=== PATIENT | male | born 1940 | race Caucasian/White ===

== ENCOUNTER 2016-09-08 23:15 | Inpatient (IN) ==
[2016-09-09] MEDS ORDERED: SODIUM CHLORIDE 0.9% 500 ML IV STA (00:18)
[2016-09-09] MEDS ORDERED: DIPHENOXYLATE/ATROPINE 2.5-0.025 MG TABLET PO STA (00:18)
[2016-09-09] MEDS ORDERED: ONDANSETRON 4 MG/2 ML VIAL IV STA (00:18)
[2016-09-09] MEDS ORDERED: LORazepam 2 MG/1 ML VIAL IV STA (00:18)
--- NOTE | 2016-09-09 00:36 | Emergency Department Note ---
Rayna Alvarado Emily, am scribing for, and in the presence of, Gary Burdick MD 00: 21. Gennaro Alvarado Robert M, MD, personally performed the services described in this documentation, ascribed by Nicki Way in my presence, and it is both accurate and complete . Arrival - Arrival Chief Complaint: Nausea/Vomiting/Diarrhea Stated Complaint: diarrhea ED Nursing Triage Note: Patient to room via ems. Patient states that he started having diarrhea on Sunday. He states that he seen on Sunday and Sunday he got sick. He saids that he has taken medication to try to help with the diarrhea but it has not stopped. Mode of Arrival: Stretcher Limitations: No Limitations Source: Patient Time Seen by Provider: 09/09/16 00:12 - History of Present Illness HPI Narrative: Pt is a 76 y/o male who came to ED with c/o diarrhea that started Sunday, September 04, 2016. Pt was seen in Dr. Avila Abernathy' office for same sxs on Sunday and worsened on Sunday and continued. Pt notes taking Pepsid but no relief. Pt states he has abdomen discomfort but denies cramping. Onset (ago): day(s) Consistency: constant Severity: mild, moderate Severity scale (1-10): 4 Quality: aching Allergies/Adverse Reactions: Allergies Allergy/AdvReac Type Severity Reaction Status Date / Time codeine Allergy ITCHING Verified 09/08/16 23:22 morphine Allergy ITCHING Verified 09/08/16 23:22 Review of System - Review of System 12 point system: reviewed and no additional remarkable complaints except as stated - Review of System Constitutional: Absent: chills, fever Respiratory: Absent: respiratory distress Cardiovascular: Absent: chest pain Gastrointestinal: Present: abdominal pain (discomfort), diarrhea. Absent: vomiting Skin: Absent: rash Medical,Surgical,& Family Hx - Medical History Cardio: History of: Hypertension Genitourinary: History of: Prostate Problems (prostate ca) - Social History Smoking Status: Never smoker Frequency of Alcohol Use: None Type of Drug Use: None Exam Vital Signs: Vital Signs Temperature 99.6 F 09/08/16 23:16 Pulse Rate 70 09/08/16 23:16 Respiratory Rate 20 09/08/16 23:16 Blood Pressure 125/58 09/08/16 23:16 O2 Sat by Pulse Oximetry 90 L 09/08/16 23:16 - General General appearance: alert, in no apparent distress - Head Head exam: Present: atraumatic, normocephalic - Eye Eye exam: Present: PERRL, EOMI - ENT ENT exam: Present: mucous membranes dry, other (pepsid in mouth). Absent: mucous membranes moist - Neck Neck exam: Present: full ROM. Absent: tenderness - Chest Chest inspection: Present: symmetric chest wall rise. Absent: tenderness - Respiratory Respiratory exam: Present: normal lung sounds bilaterally. Absent: respiratory distress - Cardiovascular Cardiovascular exam: Present: tachycardia (mild), normal heart sounds - Abdominal Exam Abdominal exam: Present: soft, tenderness (minimal tenderness), hyperactive bowel sounds. Absent: distention, guarding, rebound, normal bowel sounds, mass - Extremities Exam Extremities exam: Present: full ROM. Absent: tenderness, pedal edema - Neurological Exam Neurological exam: Present: alert, oriented X3, CN II-XII intact. Absent: motor sensory deficit - Psychiatric Psychiatric exam: Present: normal affect, normal mood - Skin Skin exam: Present: warm, dry Course - Consultations Consultation #1: Dr. Mari will admit to Dr. William Abernathy. Time: 02:03 Results - Labs CBC & BMP: 09/09/16 00:34 09/09/16 00:34 Lab Results: I have reviewed the patients labs Labs: Lab Results WBC 7.7 T/CUMM (4-12) 09/09/16 00:34 RBC 4.79 MC/CUMM (3.8-5.5) 09/09/16 00:34 Hgb 11.3 GM/DL (14.0-18.0) L 09/09/16 00:34 Hct 36.4 VOL% (42.0-52.0) L 09/09/16 00:34 MCV 76.0 FL (87-102) L 09/09/16 00:34 MCH 24 PG (27-34) L 09/09/16 00:34 MCHC 31.0 GM/DL (32-36) L 09/09/16 00:34 RDW 18.6 % (9.3-17.3) H 09/09/16 00:34 Plt Count 197 T/CUMM (130-400) 09/09/16 00:34 MPV 9.6 FL (9.6-12.0) 09/09/16 00:34 Neut % (Auto) 82.7 % (38.7-73.9) H 09/09/16 00:34 Lymph % (Auto) 6.9 % (21.2-54.2) L 09/09/16 00:34 [place] % (Auto) 9.2 % (1.7-12.7) 09/09/16 00:34 Eos % (Auto) 0.0 % (0.00-10.9) 09/09/16 00:34 Baso % (Auto) 0.4 % (0.0-0.8) 09/09/16 00:34 Neut # (Auto) 6.4 10*3/uL (1.4-7.4) 09/09/16 00:34 Lymph # (Auto) 0.5 10*3/uL (1.4-4.0) L 09/09/16 00:34 [place] # (Auto) 0.7 10*3/uL (0.11-0.8) 09/09/16 00:34 Eos # (Auto) 0.0 10*3/uL (0.0-0.87) 09/09/16 00:34 Baso # (Auto) 0.0 10*3/uL (0.0-0.2) 09/09/16 00:34 Immature Gran % 0.8 % 09/09/16 00:34 Nucleated RBC % 0.0 /100WBC 09/09/16 00:34 Immature Gran # 0.06 # 09/09/16 00:34 Nucleated RBCs # 0.00 10*3/uL 09/09/16 00:34 Sodium 144 MMOL/L (136-145) 09/09/16 00:34 Potassium 3.9 MMOL/L (3.5-5.1) 09/09/16 00:34 Chloride 110 MMOL/L (98-107) H 09/09/16 00:34 Carbon Dioxide 21 MMOL/L (21-32) 09/09/16 00:34 Anion Gap 16.9 MMOL/L (5.0-15.0) H 09/09/16 00:34 BUN 38 MG/DL (7-18) H 09/09/16 00:34 Creatinine 1.40 MG/DL (0.70-1.30) H 09/09/16 00:34 GFR Calculation 55 ML/MIN 09/09/16 00:34 BUN/Creatinine Ratio 27.00 RATIO (6.00-20.00) H 09/09/16 00:34 Glucose 126 MG/DL (74-106) H 09/09/16 00:34 Calculated Osmolality 296.8 MOS/KG (273-304) 09/09/16 00:34 Calcium 8.3 MG/DL (8.5-10.1) L 09/09/16 00:34 Magnesium 2.0 MG/DL (1.8-2.4) 09/09/16 00:34 Disposition Clinical Impression: Gastroenteritis Case discussed with: patient, patient's family Disposition: Still a Patient Condition: Stable Time of Disposition: 02:01
[2016-09-09] MEDS ORDERED: ONDANSETRON 4 MG/2 ML VIAL ONE (00:46)
[2016-09-09] MEDS ORDERED: LORazepam 2 MG/1 ML VIAL ONE (00:47)
[2016-09-09] MEDS ORDERED: DIPHENOXYLATE/ATROPINE 2.5-0.025 MG TABLET ONE (00:47)
[2016-09-09 01:05] LABS: Calcium 8.3 MG/DL (8.5-10.1); Osmolality,Calculated 296.8 MOS/KG (273-304); Potassium 3.9 MMOL/L (3.5-5.1)
[2016-09-09 01:22] LABS: Basophils % 0.4 % (0.0-0.8); Hematocrit 36.4 VOL% (42.0-52.0); Hemoglobin 11.3 GM/DL (14.0-18.0); Immature Granulocytes % 0.8 %; Immature Granulocytes Absolute 0.06 #; Lymphocytes # 0.5 10*3/uL (1.4-4.0); Lymphocytes % 6.9 % (21.2-54.2); Mean Corpuscular Hemoglobin 24 PG (27-34); Mean Platelet Volume 9.6 FL (9.6-12.0); Monocytes # 0.7 10*3/uL (0.11-0.8); Monocytes % 9.2 % (1.7-12.7); Neutrophils # 6.4 10*3/uL (1.4-7.4); Neutrophils % 82.7 % (38.7-73.9); Platelet Count 197 T/CUMM (130-400); Red Blood Count 4.79 MC/CUMM (3.8-5.5); Red Cell Distribution Width 18.6 % (9.3-17.3); White Blood Count 7.7 T/CUMM (4-12)
[2016-09-09] MEDS ORDERED: PROMETHAZINE 25 MG/1 ML VIAL IM PRN (01:58)
[2016-09-09] MEDS ORDERED: ACETAMINOPHEN 325 MG TABLET PO PRN (01:58)
[2016-09-09] MEDS ORDERED: PROMETHAZINE 25 MG TABLET PO PRN (01:58)
[2016-09-09] MEDS ORDERED: ONDANSETRON 4 MG/2 ML VIAL IV PRN (01:58)
[2016-09-09] MEDS ORDERED: SODIUM CHLORIDE 0.9% 1,000 ML IV SCH (02:00)
[2016-09-09] MEDS: DOCUSATE SODIUM 100 MG CAPSULE PO SCH ×2 (08:11→20:57)
[2016-09-09] MEDS ORDERED: traMADol 50 MG TABLET PO PRN (08:41)
[2016-09-09] MEDS ORDERED: POTASSIUM CHLORIDE INJ 10 MEQ in DEXTROSE 5% NACL 0.45% 1,000 ML IV SCH (09:00)
[2016-09-09] MEDS ORDERED: PANTOPRAZOLE 40 MG TABLET PO SCH ×2 (09:00)
--- NOTE | 2016-09-09 09:41 | Family Practice History&Phys ---
Assessment and Plan (1) N/V and diarrhea with volume depletion Status: Acute Assessment and plan: We will admit for IV hydration and further evaluation Current Visit: Yes (2) Severe weakness Status: Acute Assessment and plan: This is most likely secondary to his prolonged nausea vomiting diarrhea. Hopefully will improve with hydration and treatment. Will have patient sit up in chair and ambulate as much as possible Current Visit: Yes (3) Hypertension Status: Chronic Assessment and plan: We will resume home medications and monitor closely Current Visit: Yes (4) Status post carcinoma of the prostate Status: Chronic Assessment and plan: Stable at present Current Visit: Yes (5) History of renal calculi Status: Chronic Assessment and plan: Stable at present Current Visit: Yes (6) Seizure disorder Status: Chronic Assessment and plan: We will resume home medications and monitor closely Current Visit: Yes History of Present Illness Chief complaint: Nausea vomiting and diarrhea History of present illness: Mr. Tavarez is a 76 year old male Patient is a 76-year-old white male who was admitted to the emergency room with complaint of nausea vomiting and diarrhea since Sunday of this week. Patient states the diarrhea has improved but is still having almost continuous nausea. Unable to tolerate solids or liquids at present. Denies any significant abdominal pain or other complaints. Is having some abdominal cramping with diarrhea but this is improved. Patient states she has got extremely weak to the point that he is unable to stand without assistance. He was seen in emergency room in view of degree of symptoms admitted for further evaluation therapy Home Medications Medication Instructions Recorded Confirmed Type Atorvastatin [Lipitor] 20 mg PO DAILY 09/09/16 09/09/16 History Clopidogrel [Plavix] 75 mg PO DAILY 09/09/16 09/09/16 History Folic Acid Tab 1 mg PO DAILY 09/09/16 09/09/16 History OXcarbazepine [Trileptal] 300 mg PO BID 09/09/16 09/09/16 History Sertraline [Zoloft] 25 mg PO BID 09/09/16 09/09/16 History Tamsulosin [Flomax] 0.4 mg PO DAILY 09/09/16 09/09/16 History Allergies Allergy/AdvReac Type Severity Reaction Status Date / Time codeine Allergy ITCHING Verified 09/08/16 23:22 morphine Allergy ITCHING Verified 09/08/16 23:22 Medical,Surgical,& Family Hx - Medical History Cardio: History of: Hypertension Neurology: History of: Seizures HEENT: History of: Eye Problem (wears glasses) Genitourinary: History of: Kidney Stones, Prostate Problems (prostate ca) - Surgical History Thoracic Surgeries: Surgical HX of;: Lithotripsy Patient denies;: Organ Transplant HEENT Surgeries: Patient denies: Eye Surgery, Tonsilectomy & Adenoidectomy Abdominal Surgeries: Surgical HX of: EGD - Family History Family History: Reports;: Family Hypertension - Social History Smoking Status: Never smoker Frequency of Alcohol Use: None Type of Drug Use: None Marital Status: Lives With:: Spouse Functional capacity: independent ambulation Exam - Constitutional Vitals: Period Temp Pulse Resp BP Sys/Arellano Pulse Ox Last 24 Hr 100.9 F 69-81 16-24 150-195/76-93 92-95 General appearance: mild distress - Head Head exam: Present: normal inspection - ENT ENT exam: Present: normal exam - Neck Neck exam: Present: normal inspection - Respiratory Respiratory exam: Present: clear to auscultation bilaterally - Cardiovascular Cardiovascular exam: Present: regular rate and rhythm - GI/Abdominal GI/Abdominal exam: Present: hyperactive bowel sounds, tenderness - Extremities Exam Extremities exam: Present: normal inspection - Back Exam Back exam: Present: normal inspection - Neurological Exam Neurological exam: Present: alert, oriented X3 - Psychiatric Psychiatric exam: Present: normal affect - Skin Skin exam: Present: normal color Results - Labs CBC & BMP: 09/09/16 00:34 09/09/16 00:34 Quality Measures - Stroke Symptom Onset Unknown: No
[2016-09-09] MEDS: TAMSULOSIN 0.4 MG CAPSULE PO SCH (10:27)
[2016-09-09] MEDS: SERTRALINE 25 MG TABLET PO SCH ×2 (10:27→20:58)
[2016-09-09] MEDS: FOLIC ACID 1 MG TABLET PO SCH (10:27)
[2016-09-09] MEDS: ATORVASTATIN 20 MG TABLET PO SCH (10:27)
[2016-09-09] MEDS: OXcarbazepine 300 MG TABLET PO SCH ×2 (10:28→20:58)
[2016-09-09] MEDS: CLOPIDOGREL 75 MG TABLET PO SCH (10:28)
[2016-09-09] MEDS: PANTOPRAZOLE 40 MG VIAL IV SCH (10:28)
--- NOTE | 2016-09-09 10:34 | XRay Report ---
Portable chest. Indication: Shortness of breath. The heart is normal in size. There is calcific plaque present within the aortic knob. Calcified granulomas in the right lung base. Pulmonary vasculature is normal. The lung estrada are clear. No pneumothorax or pleural effusion. Degenerative changes of the spinal column and shoulders. Impression: No acute abnormality. PROCEDURE INTERPRETED AT [facility] DEPARTMENT OF RADIOLOGY Final Report Signed by: Dr. Brandie Borden
[2016-09-09] MEDS: DEXT 5% NACL 0.45% KCL 10 MEQ 10 MEQ/1,000 ML BAG IV SCH ×2 (10:38→17:23)
[2016-09-09 18:07] LABS: Apearance,Urine CLOUDY (Clear); Bacteria,Urine Few /HPF (Few); Bilirubin,Urine Negative (Negative); Blood, Urine Large mg/dL (Negative); Glucose,Urine (UA) Negative (Negative); Ketones,Urine Negative (Negative); Mucus,Urine Occasional /LPF (Occasional); Nitrite,Urine Negative (Negative); Protein,Urine 100 MG/DL; RBC,Urine 711 /HPF (0-4); Squamous Epithelial Cell,Urine Occasional /HPF (0-10); Urine Color Yellow (Yellow); Urine Specific Gravity 1.018 (1.001-1.035); Urine Urobilinogen < 2.0 EU/DL (0.2-1.0)
[2016-09-09] MEDS: cloNIDine 0.1 MG TABLET PO SCH (20:57)
[2016-09-09] MEDS: ACETAMINOPHEN 325 MG TABLET PO PRN (20:58)
[2016-09-10] MEDS: DEXT 5% NACL 0.45% KCL 10 MEQ 10 MEQ/1,000 ML BAG IV SCH ×4 (00:28→21:10)
[2016-09-10 04:55] LABS: Basophils % 0.5 % (0.0-0.8); Eosinophils # 0.1 10*3/uL (0.0-0.87); Eosinophils % 1.3 % (0.00-10.9); Hematocrit 31.5 VOL% (42.0-52.0); Hemoglobin 9.9 GM/DL (14.0-18.0); Immature Granulocytes % 0.5 %; Immature Granulocytes Absolute 0.03 #; Lymphocytes # 0.6 10*3/uL (1.4-4.0); Lymphocytes % 9.8 % (21.2-54.2); Mean Corpuscular HGB Conc 31.4 GM/DL (32-36); Mean Corpuscular Hemoglobin 24 PG (27-34); Mean Corpuscular Volume 75.5 FL (87-102); Mean Platelet Volume 10.1 FL (9.6-12.0); Monocytes # 0.4 10*3/uL (0.11-0.8); Neutrophils # 5.1 10*3/uL (1.4-7.4); Neutrophils % 80.9 % (38.7-73.9); Platelet Count 181 T/CUMM (130-400); Red Blood Count 4.17 MC/CUMM (3.8-5.5); Red Cell Distribution Width 18.6 % (9.3-17.3); White Blood Count 6.3 T/CUMM (4-12)
[2016-09-10 05:29] LABS: Albumin 2.6 G/DL (3.4-5.0); Bilirubin,Total 1.8 MG/DL (0.2-1.0); Calcium 7.8 MG/DL (8.5-10.1); Potassium 4.1 MMOL/L (3.5-5.1); Risk Ratio 2.36; Total Protein 5.6 G/DL (6.4-8.3); VLDL CHOLESTEROL 13.4 MG/DL
[2016-09-10 05:37] LABS: Free T4 (Free Thyroxine) 1.17 NG/DL (0.76-1.46); Thyroid Stimulating Hormone 0.163 uIU/ml (0.358-3.74)
[2016-09-10 05:42] LABS: Hypochromasia 1+; Microcytosis 1+
[2016-09-10 05:43] LABS: Elliptocytes Few; Platelet Estimate Adequate
[2016-09-10] MEDS: PANTOPRAZOLE 40 MG VIAL IV SCH (08:44)
[2016-09-10] MEDS: OXcarbazepine 300 MG TABLET PO SCH ×2 (08:44→21:11)
[2016-09-10] MEDS: CLOPIDOGREL 75 MG TABLET PO SCH (08:44)
[2016-09-10] MEDS: DOCUSATE SODIUM 100 MG CAPSULE PO SCH ×2 (08:44→21:11)
[2016-09-10] MEDS: TAMSULOSIN 0.4 MG CAPSULE PO SCH (08:44)
[2016-09-10] MEDS: SERTRALINE 25 MG TABLET PO SCH ×2 (08:44→21:11)
[2016-09-10] MEDS: ATORVASTATIN 20 MG TABLET PO SCH (08:44)
[2016-09-10] MEDS: FOLIC ACID 1 MG TABLET PO SCH (08:49)
--- NOTE | 2016-09-10 12:07 | Family Practice Progress Note ---
Family Practice - PN: Subj Interval history: Patient states that he feels better and has less nausea. He is tolerating as liquids. States she has redeveloped some diarrhea but not severe. Main complaint is significant weakness. Complaining of sore throat and his mouth is noted to be extremely dry. Will continue the IV fluids but will have patient increase his oral intake of fluids. He denies any vomiting abdominal pain or other complaints. His a.m. lab studies revealed a decrease in his hemoglobin to 9.9 and hematocrit to 31.5. His other labs are stable except for slight increase in his total bilirubin at 1.8. His chest x-ray on admission was unremarkable. Appearance-general alert and oriented HEENT-no acute changes, mouth is very dry Heart-regular rate and rhythm no murmurs Lungs-clear to auscultation Abdomen-soft and nontender, no masses or nodules noted, normal bowel sounds Extremities-slight edema Neurological exam-stable to present P L A N : Will repeat lab studies in a.m.. In view of his persistent nausea will order ultrasound of the upper abdomen. Have instructed staff to have patient sit in chair as much as possible. Have consulted physical therapy. Have ordered Hemoccult stools. If symptoms persist will need to have further abdominal studies. Exam (Progress Note) - Constitutional Vitals: Period Temp Pulse Resp BP Sys/Arellano Pulse Ox Last 24 Hr 98.4 F-101.4 F 56-86 18-28 118-156/59-74 92-100 Results - Labs CBC & BMP: 09/10/16 03:21 09/10/16 03:20 Assessment and Plan (1) N/V and diarrhea with volume depletion Status: Acute Assessment and plan: We will admit for IV hydration and further evaluation Current Visit: Yes (2) Severe weakness Status: Acute Assessment and plan: This is most likely secondary to his prolonged nausea vomiting diarrhea. Hopefully will improve with hydration and treatment. Will have patient sit up in chair and ambulate as much as possible Current Visit: Yes (3) Hypertension Status: Chronic Assessment and plan: We will resume home medications and monitor closely Current Visit: Yes (4) Status post carcinoma of the prostate Status: Chronic Assessment and plan: Stable at present Current Visit: Yes (5) History of renal calculi Status: Chronic Assessment and plan: Stable at present Current Visit: Yes (6) Seizure disorder Status: Chronic Assessment and plan: We will resume home medications and monitor closely Current Visit: Yes Quality Measures - Stroke Symptom Onset Unknown: No
[2016-09-10] MEDS: ACETAMINOPHEN 325 MG TABLET PO PRN (21:11)
[2016-09-10] MEDS: cloNIDine 0.1 MG TABLET PO SCH (21:11)
[2016-09-11] MEDS: DEXT 5% NACL 0.45% KCL 10 MEQ 10 MEQ/1,000 ML BAG IV SCH (03:23)
[2016-09-11 06:38] LABS: Basophils % 0.4 % (0.0-0.8); Eosinophils # 0.3 10*3/uL (0.0-0.87); Eosinophils % 5.9 % (0.00-10.9); Hematocrit 30.5 VOL% (42.0-52.0); Hemoglobin 9.7 GM/DL (14.0-18.0); Immature Granulocytes % 0.4 %; Immature Granulocytes Absolute 0.02 #; Lymphocytes # 0.5 10*3/uL (1.4-4.0); Lymphocytes % 9.7 % (21.2-54.2); Mean Corpuscular HGB Conc 31.8 GM/DL (32-36); Mean Corpuscular Hemoglobin 24 PG (27-34); Mean Corpuscular Volume 74.2 FL (87-102); Mean Platelet Volume 9.8 FL (9.6-12.0); Monocytes # 0.4 10*3/uL (0.11-0.8); Monocytes % 6.8 % (1.7-12.7); Neutrophils # 4.3 10*3/uL (1.4-7.4); Neutrophils % 76.8 % (38.7-73.9); Platelet Count 196 T/CUMM (130-400); Red Blood Count 4.11 MC/CUMM (3.8-5.5); Red Cell Distribution Width 18.1 % (9.3-17.3); White Blood Count 5.6 T/CUMM (4-12)
[2016-09-11 07:11] LABS: Albumin 2.4 G/DL (3.4-5.0); Bilirubin,Total 0.7 MG/DL (0.2-1.0); Calcium 7.4 MG/DL (8.5-10.1); Osmolality,Calculated 282.1 MOS/KG (273-304); Potassium 3.7 MMOL/L (3.5-5.1); Total Protein 5.5 G/DL (6.4-8.3)
--- NOTE | 2016-09-11 07:17 | Family Practice Progress Note ---
Family Practice - PN: Subj Interval history: Patient 76-year-old white male admitted with weakness and probable dehydration. He states he had quite a bit of diarrhea denied no nausea or vomiting. He denies any abdominal pain, chest pain or any other problems at present. He does have a past medical history of staghorn calculi and prostate cancer. He denies any seizure activity and has been taking his Trileptal faithfully. He does not have any headaches, cough or shortness of breath. He denies any further falls. Exam (Progress Note) - Constitutional Vitals: Period Temp Pulse Resp BP Sys/Arellano Pulse Ox Last 24 Hr 98.0 F-99.4 F 54-76 18-20 132-155/69-83 90-97 Exam: Objective the well-developed gentleman is awake alert and able give good history. He has prominent resting tremor of Parkinson's disease. He appears comfortable and denies any discomfort of any sort. Cardiovascular: Heart rates regular without murmurs or gallops Respiratory: The lungs clear to auscultation bilaterally. Abdomen: Abdomen soft and nontender to palpation. Results - Labs CBC & BMP: 09/11/16 04:49 09/11/16 04:49 Lab Results: I have reviewed the past 24 hour labs Assessment and Plan (1) Dehydration Status: Acute Assessment and plan: 09/11/2016: Patient has improved with IV fluid therapy. Will check orthostatic vital signs. Current Visit: Yes (2) Gastroenteritis Status: Acute Assessment and plan: 09/11/2016: Patient has absolutely no abdominal pain whatsoever. His CRP was quite elevated so I am going to culture was blood in his urine and begin him on IV Rocephin. Stool studies will be ordered. Current Visit: Yes Quality Measures - Stroke Symptom Onset Unknown: No
--- NOTE | 2016-09-11 08:05 | Ultrasound Report ---
Referring Physician: Naveed Mari Exam: US abdomen Date: September 11, 2016 Reason: Upper abdominal pain Comparison: Renal ultrasound March 31, 2013 Technique: Grayscale ultrasound images of the abdomen were obtained. Ultrasound images were captured and stored. Findings: The liver measures 14.7 cm in length. No suspicious hepatic lesion is identified. No gallstones are seen. No abnormal gallbladder wall thickening or pericholecystic fluid is identified. The common bile duct is normal in size, measuring 0.4 cm in diameter. The visualized pancreas is unremarkable. The right kidney measures 12.9 x 6.3 x 5.7 cm, and the left kidney measures 13.4 x 7.1 x 5.3 cm. No hydronephrosis is seen. Bilateral renal cysts are present. There is a 3.5 x 2.0 x 2.6 cm exophytic simple cyst at the upper pole of the right kidney and a 3.1 x 2.6 x 2.2 cm exophytic simple cyst at the lower pole of the right kidney. The largest cyst at the left kidney measures 5.7 x 4.9 x 4.7 cm, is exophytic and is located at the upper pole. The spleen measures 11.4 x 5.8 x 4.3 cm. Splenic volume is 264 cc. The visualized IVC is patent, and no ascites is identified. The visualized abdominal aorta is normal in size, measuring up to 2.1 cm in diameter. Impression: 1. No acute process is identified within the abdomen. 2. Bilateral renal cysts. PROCEDURE INTERPRETED AT [facility] DEPARTMENT OF RADIOLOGY Final Report Signed by: Dr. Gato Tavarez
[2016-09-11] MEDS: CLOPIDOGREL 75 MG TABLET PO SCH (09:27)
[2016-09-11] MEDS: ATORVASTATIN 20 MG TABLET PO SCH (09:28)
[2016-09-11] MEDS: DOCUSATE SODIUM 100 MG CAPSULE PO SCH ×3 (09:28→21:15)
[2016-09-11] MEDS: OXcarbazepine 300 MG TABLET PO SCH ×2 (09:28→21:13)
[2016-09-11] MEDS: TAMSULOSIN 0.4 MG CAPSULE PO SCH (09:28)
[2016-09-11] MEDS: FOLIC ACID 1 MG TABLET PO SCH (09:28)
[2016-09-11] MEDS: SERTRALINE 25 MG TABLET PO SCH ×2 (09:28→21:13)
[2016-09-11] MEDS: cefTRIAXone 1,000 MG in SODIUM CHLORIDE 0.9% 100 ML IV SCH (09:31)
[2016-09-11] MEDS: PANTOPRAZOLE 40 MG VIAL IV SCH (13:58)
[2016-09-11] MEDS: ACETAMINOPHEN 325 MG TABLET PO PRN (14:01)
[2016-09-11] MEDS ORDERED: CLORAZEPATE 3.75 MG TABLET PO ONE (20:49)
[2016-09-11] MEDS ORDERED: ALBUTEROL/IPRATROPIUM 3 ML NEB RESP TX PRN (20:50)
[2016-09-11] MEDS: cloNIDine 0.1 MG TABLET PO SCH (21:13)
[2016-09-11] MEDS ORDERED: FUROSEMIDE 20 MG/2 ML VIAL IV ONE (21:36)
--- NOTE | 2016-09-11 22:00 | XRay Report ---
Portable chest. Indication: Shortness of breath. Comparison: September 09, 2016. The heart is mildly enlarged. There is calcific plaque present within the aortic knob. The pulmonary vasculature is normal. There is increasing interstitial prominence in the medial aspect of the right lung base compared to the previous study. No pneumothorax. No pleural effusion. Impression: A mild right basilar interstitial infiltrate has developed. Follow-up is recommended. PROCEDURE INTERPRETED AT [facility] DEPARTMENT OF RADIOLOGY Final Report Signed by: Dr. Brandie Borden
[2016-09-12 06:56] LABS: Basophils % 0.3 % (0.0-0.8); Eosinophils # 0.2 10*3/uL (0.0-0.87); Eosinophils % 2.4 % (0.00-10.9); Hematocrit 34.3 VOL% (42.0-52.0); Hemoglobin 10.8 GM/DL (14.0-18.0); Immature Granulocytes % 1.1 %; Immature Granulocytes Absolute 0.08 #; Lymphocytes # 0.5 10*3/uL (1.4-4.0); Lymphocytes % 6.4 % (21.2-54.2); Mean Corpuscular HGB Conc 31.5 GM/DL (32-36); Mean Corpuscular Hemoglobin 24 PG (27-34); Mean Corpuscular Volume 74.9 FL (87-102); Mean Platelet Volume 9.6 FL (9.6-12.0); Monocytes # 0.5 10*3/uL (0.11-0.8); Monocytes % 7.3 % (1.7-12.7); Neutrophils # 6.1 10*3/uL (1.4-7.4); Neutrophils % 82.5 % (38.7-73.9); Platelet Count 262 T/CUMM (130-400); Red Blood Count 4.58 MC/CUMM (3.8-5.5); Red Cell Distribution Width 17.8 % (9.3-17.3); White Blood Count 7.4 T/CUMM (4-12)
--- NOTE | 2016-09-12 07:00 | Family Practice Progress Note ---
Family Practice - PN: Subj Interval history: Patient states he had a good night and his appetite has improved. His diarrhea lessened fair amount yesterday. He still was negative for C. difficile and his culture is pending. Repeat chest x-ray showed right midlung field pneumonia which I had suspicioned. Blood cultures are yet pending. Physical therapy has been consulted and I have asked the nurses to get him up in chair twice daily. Will advance his diet as he tolerates. I am also going to reduce his IV fluid. Exam (Progress Note) - Constitutional Vitals: Period Temp Pulse Resp BP Sys/Arellano Pulse Ox Last 24 Hr 98.4 F-100.2 F 65-86 20-24 144-168/77-88 92-97 Exam: Objective the well-developed gentleman is awake alert and able give good history. He states he certainly feeling better this morning. Laboratory studies show complete resolution of his dehydration. His chest x-ray shows right midlung field infiltrate not present on initial film due to his dehydration. Cardiovascular: Heart rates regular without murmurs or gallops Respiratory: Patient is noted to have right basilar rales. Abdomen: Abdomen soft and nontender to palpation. Results - Labs CBC & BMP: 09/12/16 04:56 09/11/16 04:49 Lab Results: I have reviewed the past 24 hour labs - Diagnostic Findings Procedure: Chest x-ray: report reviewed by me (Right mid lung field pneumonia) Assessment and Plan (1) Dehydration Status: Resolved Assessment and plan: 09/11/2016: Patient has improved with IV fluid therapy. Will check orthostatic vital signs. 09/12/2016: Patient's dehydration has resolved. Current Visit: Yes (2) Gastroenteritis Status: Acute Assessment and plan: 09/11/2016: Patient has absolutely no abdominal pain whatsoever. His CRP was quite elevated so I am going to culture was blood in his urine and begin him on IV Rocephin. Stool studies will be ordered. 09/12/2016: Patient states this is certainly improved. Will advance his diet. Stool cultures pending the C. difficile was negative. Current Visit: Yes (3) Community acquired pneumonia Status: Acute Assessment and plan: 09/12/2016: Rocephin was started yesterday. Will add Zithromax today. Current Visit: Yes Quality Measures - Stroke Symptom Onset Unknown: No
[2016-09-12] MEDS: AZITHROMYCIN INJ 500 MG in SODIUM CHLORIDE 0.9% 250 ML IV SCH (09:02)
[2016-09-12] MEDS: cefTRIAXone 1,000 MG in SODIUM CHLORIDE 0.9% 100 ML IV SCH (10:44)
[2016-09-12] MEDS: OXcarbazepine 300 MG TABLET PO SCH ×2 (10:46→20:44)
[2016-09-12] MEDS: PANTOPRAZOLE 40 MG TABLET PO SCH (10:46)
[2016-09-12] MEDS: TAMSULOSIN 0.4 MG CAPSULE PO SCH (10:46)
[2016-09-12] MEDS: DOCUSATE SODIUM 100 MG CAPSULE PO SCH ×2 (10:46→20:45)
[2016-09-12] MEDS: SERTRALINE 25 MG TABLET PO SCH ×2 (10:46→20:44)
[2016-09-12] MEDS: ATORVASTATIN 20 MG TABLET PO SCH (10:46)
[2016-09-12] MEDS: CLOPIDOGREL 75 MG TABLET PO SCH (10:46)
[2016-09-12] MEDS: FOLIC ACID 1 MG TABLET PO SCH (10:46)
[2016-09-12] MEDS: ACETAMINOPHEN 325 MG TABLET PO PRN (10:55)
--- NOTE | 2016-09-12 11:18 | Physician Query Form ---
CLICK EDIT DOCUMENT TO SELECT QUERY ANSWER --> OK --> SIGN Dionne Luu RN Clinical Weather Algorithm Scientist W) [phone] (f) [phone] [email or web address] PROVIDERS: Make your selection(s) from the choices in EACH section by typing an "x" and enter comments in the comment section. Please use your independent medical judgment in providing your response. This request does not imply that any particular answer is desired or expected. CLINICAL INDICATORS: (Providers should not edit this section) Based on documentation of "Acute nausea, vomiting and diarrhea" "Probable dehydration" Creatinine from 1.40 to 1.00. GFR form 55 to 82. Treated with NS bolus, NS infusion, D5 1/2 infusion Clarify which of the following most accurately represents the patient's renal status: ( ) Acute kidney injury (non-traumatic) (v ) Acute renal failure ( ) Acute renal failure with underlying Chronic Kidney Disease (CKD) - please provide stage below ( ) Acute renal failure with pathological renal lesion ( ) Acute renal failure with necrosis ( ) tubular ( ) medullary ( ) cortical ( ) CKD - please provide stage below ( ) End Stage Renal Disease ( ) Acute interstitial nephritis ( ) Hepatorenal syndrome ( ) Other, please specify: ( ) Clinically unable to determine Chronic Kidney Disease Stages Source: National Kidney Disease Foundation ( ) Stage I (eGFR > or = 90) ( ) Stage II (eGFR 60 - 89) ( ) Stage III (eGFR 30 - 59) ( ) Stage IV (eGFR 15 - 29) ( ) Stage V (eGFR < 15 or dialysis) COMMENTS: Use of terms such as suspected, likely, or probable (associated with a specific diagnosis that is being evaluated, monitored, or treated as if it exists) are acceptable and can be restated in the discharge summary if not ruled out. MTDD
--- NOTE | 2016-09-12 12:07 | XRay Report ---
XR chest 1V Indication: Febrile illness. Chest one view: Comparison 09/11/2016. Focal infiltrate right lung base is unchanged. No new infiltrates are shown. Heart size remains normal with continued atheromatous disease of the aorta. Impression: No change. Persistent right basilar pneumonia. PROCEDURE INTERPRETED AT [facility] DEPARTMENT OF RADIOLOGY Final Report Signed by: Scot Painting M.D.
[2016-09-12] MEDS: cloNIDine 0.1 MG TABLET PO SCH (20:44)
--- NOTE | 2016-09-13 06:59 | Family Practice Progress Note ---
Family Practice - PN: Subj Interval history: Patient states he is feeling much better this morning but states that he did not bring him anything to eat yesterday. I told him I did order regular diet yesterday and I will make sure that it is done today. He denies any shortness of breath. He still has a mild cough he states his diarrhea subsided a great deal. Stool was negative for C. difficile. Exam (Progress Note) - Constitutional Vitals: Period Temp Pulse Resp BP Sys/Arellano Pulse Ox Last 24 Hr 97.2 F-100.4 F 73-82 18-24 120-151/71-87 90-100 Exam: Objective the well-developed gentleman is awake alert and able give good history. He appears to have returned to his normal self this morning. He states she is hungry and wants something to eat. Cardiovascular: Heart rates regular without murmurs or gallops Respiratory: Patient is noted to have right basilar rales. Abdomen: Abdomen soft and nontender to palpation. Results - Labs CBC & BMP: 09/12/16 04:56 09/11/16 04:49 Lab Results: I have reviewed the past 24 hour labs Assessment and Plan (1) Dehydration Status: Resolved Assessment and plan: 09/11/2016: Patient has improved with IV fluid therapy. Will check orthostatic vital signs. 09/12/2016: Patient's dehydration has resolved. Current Visit: Yes (2) Gastroenteritis Status: Acute Assessment and plan: 09/11/2016: Patient has absolutely no abdominal pain whatsoever. His CRP was quite elevated so I am going to culture was blood in his urine and begin him on IV Rocephin. Stool studies will be ordered. 09/12/2016: Patient states this is certainly improved. Will advance his diet. Stool cultures pending the C. difficile was negative. 09/13/2016: Patient's diarrhea has improved dramatically. Current Visit: Yes (3) Community acquired pneumonia Status: Acute Assessment and plan: 09/12/2016: Rocephin was started yesterday. Will add Zithromax today. 09/13/2016: We will repeat chest x-ray in the a.m. Current Visit: Yes Quality Measures - Stroke Symptom Onset Unknown: No
[2016-09-13] MEDS: AZITHROMYCIN INJ 500 MG in SODIUM CHLORIDE 0.9% 250 ML IV SCH (08:56)
[2016-09-13] MEDS: ATORVASTATIN 20 MG TABLET PO SCH (08:59)
[2016-09-13] MEDS: FOLIC ACID 1 MG TABLET PO SCH (08:59)
[2016-09-13] MEDS: SERTRALINE 25 MG TABLET PO SCH ×2 (08:59→21:10)
[2016-09-13] MEDS: TAMSULOSIN 0.4 MG CAPSULE PO SCH (09:00)
[2016-09-13] MEDS: OXcarbazepine 300 MG TABLET PO SCH ×2 (09:00→21:10)
[2016-09-13] MEDS: CLOPIDOGREL 75 MG TABLET PO SCH (09:00)
[2016-09-13] MEDS: PANTOPRAZOLE 40 MG TABLET PO SCH (09:00)
[2016-09-13] MEDS: DOCUSATE SODIUM 100 MG CAPSULE PO SCH (09:00)
[2016-09-13] MEDS: cefTRIAXone 1,000 MG in SODIUM CHLORIDE 0.9% 100 ML IV SCH (09:56)
[2016-09-13] MEDS: DEXTROSE 5% NACL 0.45% 1,000 ML IV SCH (11:19)
[2016-09-13] MEDS: cloNIDine 0.1 MG TABLET PO SCH (21:10)
[2016-09-14] MEDS: DOCUSATE SODIUM 100 MG CAPSULE PO SCH ×3 (00:02→20:45)
--- NOTE | 2016-09-14 06:28 | Family Practice Progress Note ---
Family Practice - PN: Subj Interval history: Patient states she is feeling much better but is having some persistent diarrhea. His stool studies have been negative. His repeat chest x-ray today is yet pending. He denies any shortness of breath or chest pain. Not having any abdominal pain. Patient states he feels 100% better. His is now in the hospital here as well. Exam (Progress Note) - Constitutional Vitals: Period Temp Pulse Resp BP Sys/Arellano Pulse Ox Last 24 Hr 98.3 F-99.7 F 66-95 20-28 130-165/69-95 88-93 Exam: Objective the well-developed gentleman is awake alert and able give good history. Patient states he tolerated his regular diet yesterday. He states he almost feels back to his normal. His has taken ill and is now hospitalized also. Cardiovascular: Heart rates regular without murmurs or gallops Respiratory: Patient is noted to have minimal right basilar rales. Abdomen: Abdomen soft and nontender to palpation. Results - Labs CBC & BMP: 09/12/16 04:56 09/11/16 04:49 - Diagnostic Findings Procedure: Chest x-ray: report reviewed by me (Chest x-ray is pending.) Assessment and Plan (1) Dehydration Status: Resolved Assessment and plan: 09/11/2016: Patient has improved with IV fluid therapy. Will check orthostatic vital signs. 09/12/2016: Patient's dehydration has resolved. Current Visit: Yes (2) Gastroenteritis Status: Acute Assessment and plan: 09/11/2016: Patient has absolutely no abdominal pain whatsoever. His CRP was quite elevated so I am going to culture was blood in his urine and begin him on IV Rocephin. Stool studies will be ordered. 09/12/2016: Patient states this is certainly improved. Will advance his diet. Stool cultures pending the C. difficile was negative. 09/13/2016: Patient's diarrhea has improved dramatically. 09/14/2016: He states he continues to have some diarrhea. I am going to start him on Lomotil. Current Visit: Yes (3) Community acquired pneumonia Status: Acute Assessment and plan: 09/12/2016: Rocephin was started yesterday. Will add Zithromax today. 09/13/2016: We will repeat chest x-ray in the a.m. 09/14/2016: Patient's chest x-ray this morning is pending. He clinically is certainly improved. Current Visit: Yes Quality Measures - Stroke Symptom Onset Unknown: No
[2016-09-14] MEDS: PANTOPRAZOLE 40 MG TABLET PO SCH (08:35)
[2016-09-14] MEDS: TAMSULOSIN 0.4 MG CAPSULE PO SCH (08:35)
[2016-09-14] MEDS: CLOPIDOGREL 75 MG TABLET PO SCH (08:35)
[2016-09-14] MEDS: FOLIC ACID 1 MG TABLET PO SCH (08:36)
[2016-09-14] MEDS: ATORVASTATIN 20 MG TABLET PO SCH (08:36)
[2016-09-14] MEDS: OXcarbazepine 300 MG TABLET PO SCH ×2 (08:36→20:45)
[2016-09-14] MEDS: AZITHROMYCIN INJ 500 MG in SODIUM CHLORIDE 0.9% 250 ML IV SCH (08:36)
[2016-09-14] MEDS: SERTRALINE 25 MG TABLET PO SCH ×2 (08:36→20:45)
[2016-09-14] MEDS: DIPHENOXYLATE/ATROPINE 2.5-0.025 MG TABLET PO SCH ×3 (08:40→20:45)
[2016-09-14] MEDS: cefTRIAXone 1,000 MG in SODIUM CHLORIDE 0.9% 100 ML IV SCH (09:47)
--- NOTE | 2016-09-14 10:25 | XRay Report ---
XR chest 1V portable Indication: Follow-up pneumonia. Chest one view: Since 2 days ago, mid and upper lungs remain relatively clear. There is the appearance of worsening opacification of both lung bases which is probably primarily from decreased inspiratory effort since the prior exam. Heart size and mediastinal contours are normal. Impression: Decreased inspiration. The appearance of worsening bibasilar infiltrates is primarily from atelectasis. PROCEDURE INTERPRETED AT [facility] DEPARTMENT OF RADIOLOGY Final Report Signed by: Scot Painting M.D.
[2016-09-14] MEDS: ACETAMINOPHEN 325 MG TABLET PO PRN (12:19)
[2016-09-14] MEDS: cloNIDine 0.1 MG TABLET PO SCH (20:45)
[2016-09-15 03:40] LABS: Basophils # 0.1 10*3/uL (0.0-0.2); Basophils % 0.6 % (0.0-0.8); Eosinophils # 0.2 10*3/uL (0.0-0.87); Eosinophils % 2.1 % (0.00-10.9); Hematocrit 32.5 VOL% (42.0-52.0); Immature Granulocytes % 2.3 %; Lymphocytes # 0.6 10*3/uL (1.4-4.0); Lymphocytes % 6.9 % (21.2-54.2); Mean Corpuscular HGB Conc 30.8 GM/DL (32-36); Mean Corpuscular Hemoglobin 23 PG (27-34); Mean Corpuscular Volume 75.2 FL (87-102); Mean Platelet Volume 8.9 FL (9.6-12.0); Monocytes # 0.7 10*3/uL (0.11-0.8); Monocytes % 8.4 % (1.7-12.7); Neutrophils # 7.1 10*3/uL (1.4-7.4); Neutrophils % 79.7 % (38.7-73.9); Platelet Count 390 T/CUMM (130-400); Red Blood Count 4.32 MC/CUMM (3.8-5.5); Red Cell Distribution Width 17.7 % (9.3-17.3); White Blood Count 8.9 T/CUMM (4-12)
[2016-09-15 04:11] LABS: Calcium 8.1 MG/DL (8.5-10.1); Osmolality,Calculated 283.3 MOS/KG (273-304); Potassium 3.5 MMOL/L (3.5-5.1)
[2016-09-15] MEDS: ACETAMINOPHEN 325 MG TABLET PO PRN (05:43)
--- NOTE | 2016-09-15 07:38 | Discharge Summary ---
Hospital Course - Hospital Course Hospital Course: Patient 68-year-old gentleman presented emergency room with severe weakness and having bouts of diarrhea. Patient was found to be dehydrated and was noted to have elevated CRP. Stool studies were negative but repeat chest x-ray showed right basilar infiltrate. Patient was started on IV Rocephin and Zithromax and is clinically much improved. Patient's chest x-ray fails to show much improvement patient states he is feels back to his normal he is ready to go home. His is developed is rather severe illness and he is adamant about being with her. He is not having any fever or chills at present. His appetite is return to his normal. He will be discharged home on oral Levaquin. Diagnosis - Discharge Diagnosis (1) Dehydration Status: Resolved (2) Gastroenteritis Status: Acute (3) Community acquired pneumonia Status: Acute Discharge Plan - Discharge Data Disposition: Disch To Home/Self Care Condition at Discharge: Stable Discharge Diet: advance to your usual diet Activity: resume usual activities as tolerated Hygiene: no restrictions Weight Bearing at Discharge: full weight bearing Driving: no restrictions Contact your physician if you experience:: fever over 101 - Discharge Medications New Acetaminophen Tab [Tylenol Tab] 650 mg PO Q6H PRN #0 tablet PRN Reason: Fever > 100.4 Or Headache Diphenoxylate/Atrop 2.5-0.025 [Lomotil Tab] 1 tablet PO TID #30 tablet Levofloxacin Tab [Levaquin Tab] 500 mg PO DAILY #7 tablet cloNIDine TAB [Catapres Tab] 0.1 mg PO BEDTIME #30 tablet Continue Tamsulosin [Flomax] 0.4 mg PO DAILY Atorvastatin [Lipitor] 20 mg PO DAILY OXcarbazepine [Trileptal] 300 mg PO BID Clopidogrel [Plavix] 75 mg PO DAILY Folic Acid Tab 1 mg PO DAILY Sertraline [Zoloft] 25 mg PO BID - Follow Up or Referral Follow Up: William Abernathy MD [Primary Care Provider] - 2 Weeks (Chest x-ray on return to clinic) - Forms/Instructions Exam - Constitutional Vitals: Period Temp Pulse Resp BP Sys/Arellano Pulse Ox Last 24 Hr 96.4 F-100.8 F 79-99 17-24 118-155/52-98 90-96 Exam: Objective the well-developed gentleman is awake alert and able give good history. Patient states he is ready for discharge. He states his is doing very poorly. Cardiovascular: Heart rates regular without murmurs or gallops Respiratory: Lungs are clear bilaterally. Abdomen: Abdomen soft and nontender to palpation. Discharge Results Procedures and tests throughout hospitalization: Pending Orders 09/10/16 05:50 Occult Blood, Stool Routine 09/11/16 09:23 Blood Culture Stat 09/12/16 10:00 Urine Culture Stat 09/13/16 12:21 Stool Culture Stat Labs on day of discharge: Labs from last 24 hours 09/15/16 09/15/16 03:03 03:03 WBC 8.9 RBC 4.32 Hgb 10.0 L Hct 32.5 L MCV 75.2 L MCH 23 L MCHC 30.8 L RDW 17.7 H Plt Count 390 D MPV 8.9 L Neut % (Auto) 79.7 H Lymph % (Auto) 6.9 L Garrett % (Auto) 8.4 Eos % (Auto) 2.1 Baso % (Auto) 0.6 Neut # (Auto) 7.1 Lymph # (Auto) 0.6 L Garrett # (Auto) 0.7 Eos # (Auto) 0.2 Baso # (Auto) 0.1 Immature Gran % 2.3 Nucleated RBC % 0.0 Immature Gran # 0.20 Nucleated RBCs # 0.00 Sodium 141 Potassium 3.5 Chloride 104 Carbon Dioxide 26 Anion Gap 14.5 BUN 17 Creatinine 1.10 GFR Calculation 72 BUN/Creatinine Ratio 15.00 Glucose 120 H Calculated Osmolality 283.3 Calcium 8.1 L Preliminary micro results at discharge 09/13/16 12:21 Stool Culture - Preliminary Stool No enteric pathogens at 12 hrs 09/12/16 10:00 Urine Culture - Preliminary Urine,Voided No Growth at 24 hours. 09/11/16 09:23 Blood Culture - Preliminary Blood No growth at 3 days 09/11/16 09:23 Blood Culture - Preliminary Blood No growth at 3 days All cultures were negative. DS: Provider Date of admission: 09/09/16 02:05 Primary care physician: William Abernathy MD Attending physician on admission: William Abernathy MD Consults: 09/09/16 02:36 Consult to Pharmacy [CONS] Routine Reason for Pharmacy Consult: Adjust Meds Renal Funct 09/10/16 11:51 Consult to Physical Therapy [CONS] Routine Reason for Physical Therapy: Ambulation Start Therapy: Tomorrow Discharging clinician: William Abernathy MD Expected date of discharge: 09/15/16
[2016-09-15] MEDS ORDERED: LEVOFLOXACIN 500 MG TABLET PO SCH (09:00)
[2016-09-15] MEDS: DOCUSATE SODIUM 100 MG CAPSULE PO SCH (10:33)
[2016-09-15] MEDS: TAMSULOSIN 0.4 MG CAPSULE PO SCH (10:33)
[2016-09-15] MEDS: ATORVASTATIN 20 MG TABLET PO SCH (10:33)
[2016-09-15] MEDS: DIPHENOXYLATE/ATROPINE 2.5-0.025 MG TABLET PO SCH (10:33)
[2016-09-15] MEDS: CLOPIDOGREL 75 MG TABLET PO SCH (10:33)
[2016-09-15] MEDS: PANTOPRAZOLE 40 MG TABLET PO SCH (10:33)
[2016-09-15] MEDS: FOLIC ACID 1 MG TABLET PO SCH (10:33)
[2016-09-15] MEDS: SERTRALINE 25 MG TABLET PO SCH (10:33)
[2016-09-15] MEDS: OXcarbazepine 300 MG TABLET PO SCH (10:34)
[2016-09-15] MEDS: cefTRIAXone 1,000 MG in SODIUM CHLORIDE 0.9% 100 ML IV SCH (10:36)
[2016-09-15] MEDS: AZITHROMYCIN INJ 500 MG in SODIUM CHLORIDE 0.9% 250 ML IV SCH (13:05)
[2016-09-15 13:11] VITALS: BP 150/77
== END 2016-09-15 12:21 | disposition home health service (06) | DRG 682 ==
LOC: EDBD → EDUNIT# → N.ED 23:15 → N.EDINP 09-09 01:58 → N.2E 09-09 02:32
PROVIDERS: ADMIT Family Medicine; ATTEND Family Medicine

== ENCOUNTER 2018-01-26 20:11 | Inpatient (IN) ==
[2018-01-26] MEDS ORDERED: ALBUTEROL/IPRATROPIUM 3 ML NEB RESP TX STA (21:29)
[2018-01-26] MEDS ORDERED: methylPREDNISolone SOD SUC 125 MG/2 ML VIAL IV STA (21:29)
[2018-01-26 21:53] LABS: ABG Base Excess -0.4 MMOL/L (-2.5-2.5); ABG HCO3 24.1 MMOL/L (20-26); ABG Oxygen Saturation 97.8 % (95-100); ABG PCO2 31.6 MM HG (35-48); ABG PH 7.464 (7.35-7.45); ABG TCO2 20.4 MMOL/L (23-27)
[2018-01-26 22:20] LABS: Basophils % 0.5 % (0.0-0.8); Eosinophils # 0.3 10*3/uL (0.0-0.87); Eosinophils % 3.6 % (0.00-10.9); Hematocrit 32.4 VOL% (42.0-52.0); Hemoglobin 10.5 GM/DL (14.0-18.0); Immature Granulocytes % 0.5 %; Immature Granulocytes Absolute 0.04 #; Lymphocytes # 0.8 10*3/uL (1.4-4.0); Lymphocytes % 10.9 % (21.2-54.2); Mean Corpuscular HGB Conc 32.4 GM/DL (32-36); Mean Corpuscular Hemoglobin 28 PG (27-34); Mean Corpuscular Volume 86.6 FL (87-102); Mean Platelet Volume 9.2 FL (9.6-12.0); Monocytes # 0.8 10*3/uL (0.11-0.8); Monocytes % 11.1 % (1.7-12.7); Neutrophils # 5.4 10*3/uL (1.4-7.4); Neutrophils % 73.4 % (38.7-73.9); Platelet Count 215 T/CUMM (130-400); Red Blood Count 3.74 MC/CUMM (3.8-5.5); Red Cell Distribution Width 23.9 % (9.3-17.3); White Blood Count 7.4 T/CUMM (4-12)
[2018-01-26 22:45] LABS: Albumin 3.3 G/DL (3.4-5.0); Bilirubin,Total 0.7 MG/DL (0.2-1.0); Calcium 8.7 MG/DL (8.5-10.1); Osmolality,Calculated 284.3 MOS/KG (273-304); Potassium 3.6 MMOL/L (3.5-5.1); Total Protein 7.5 G/DL (6.4-8.3)
[2018-01-26] MEDS ORDERED: cefTRIAXone 250 MG VIAL IV STA (23:45)
[2018-01-26] MEDS ORDERED: AZITHROMYCIN INJ 500 MG in SODIUM CHLORIDE 0.9% 250 ML IV STA (23:46)
[2018-01-26] MEDS ORDERED: cefTRIAXone 1,000 MG VIAL ONE (23:53)
[2018-01-26] MEDS ORDERED: SODIUM CHLORIDE 0.9% 100 ML IV ONE (23:53)
[2018-01-27] MEDS ORDERED: ACETAMINOPHEN 325 MG TABLET PO PRN (01:04)
[2018-01-27] MEDS ORDERED: ONDANSETRON 4 MG/2 ML VIAL IV PRN (01:04)
[2018-01-27] MEDS: cefTRIAXone 1,000 MG in SYRINGE 1 EACH IV SCH ×2 (01:44→23:35)
[2018-01-27] MEDS: SODIUM CHLORIDE 0.9% 1,000 ML IV SCH ×3 (02:09→20:46)
[2018-01-27] MEDS: ALBUTEROL/IPRATROPIUM 3 ML NEB RESP TX SCH ×6 (02:59→23:22)
[2018-01-27] MEDS ORDERED: hydrALAZINE 20 MG/1 ML VIAL IV ONE (05:06)
[2018-01-27 05:09] LABS: Basophils % 0.4 % (0.0-0.8); Eosinophils % 0.3 % (0.00-10.9); Hematocrit 30.1 VOL% (42.0-52.0); Hemoglobin 9.9 GM/DL (14.0-18.0); Immature Granulocytes % 0.6 %; Immature Granulocytes Absolute 0.04 #; Lymphocytes # 0.3 10*3/uL (1.4-4.0); Lymphocytes % 3.7 % (21.2-54.2); Mean Corpuscular HGB Conc 32.9 GM/DL (32-36); Mean Corpuscular Hemoglobin 28 PG (27-34); Mean Corpuscular Volume 86.2 FL (87-102); Mean Platelet Volume 9.3 FL (9.6-12.0); Monocytes # 0.2 10*3/uL (0.11-0.8); Monocytes % 2.1 % (1.7-12.7); Neutrophils # 6.7 10*3/uL (1.4-7.4); Neutrophils % 92.9 % (38.7-73.9); Platelet Count 211 T/CUMM (130-400); Red Blood Count 3.49 MC/CUMM (3.8-5.5); Red Cell Distribution Width 23.8 % (9.3-17.3); White Blood Count 7.3 T/CUMM (4-12)
[2018-01-27 05:26] LABS: Band Neutrophils 2 % (0-10); Hypochromasia 1+; Lymphocytes 3 % (20-55); Ovalocytes Slight; Platelet Estimate Adequate; Segmented Neutrophils 93 % (50-85); Total Cells Counted 100
[2018-01-27 05:36] LABS: Bilirubin,Total 0.6 MG/DL (0.2-1.0); Calcium 8.6 MG/DL (8.5-10.1); Osmolality,Calculated 288.5 MOS/KG (273-304); Potassium 3.6 MMOL/L (3.5-5.1); Total Protein 7.3 G/DL (6.4-8.3)
[2018-01-27] MEDS ORDERED: cloNIDine 0.1 MG TABLET PO ONE (06:42)
[2018-01-27] MEDS ORDERED: PANTOPRAZOLE 40 MG TABLET PO SCH (09:00)
[2018-01-27] MEDS ORDERED: methylPREDNISolone SOD SUC 40 MG/1 ML VIAL IV SCH (09:00)
[2018-01-27] MEDS: CYANOCOBALAMIN 500 MCG TABLET PO SCH (10:27)
[2018-01-27] MEDS: CETIRIZINE 10 MG TABLET PO SCH (10:27)
[2018-01-27] MEDS: CLOPIDOGREL 75 MG TABLET PO SCH (10:27)
[2018-01-27] MEDS: SELENIUM 200 MCG TABLET PO SCH (10:27)
[2018-01-27] MEDS: POTASSIUM CHLORIDE 8 MEQ CAPSULE PO SCH (10:27)
[2018-01-27] MEDS: PANTOPRAZOLE 40 MG TABLET PO SCH (10:27)
[2018-01-27] MEDS: PRIMIDONE 50 MG TABLET PO SCH ×3 (10:27→20:46)
[2018-01-27] MEDS: OXcarbazepine 300 MG TABLET PO SCH ×2 (10:32→20:46)
[2018-01-27] MEDS: TAMSULOSIN 0.4 MG CAPSULE PO SCH (10:32)
[2018-01-27] MEDS: FERROUS SULFATE 325 MG TABLET PO SCH ×2 (10:33→20:45)
[2018-01-27] MEDS: SERTRALINE 25 MG TABLET PO SCH ×2 (10:33→20:46)
[2018-01-27] MEDS: FOLIC ACID 1 MG TABLET PO SCH (10:33)
[2018-01-27] MEDS: busPIRone 5 MG TABLET PO SCH ×3 (10:33→20:44)
[2018-01-27] MEDS: ATORVASTATIN 20 MG TABLET PO SCH (10:33)
[2018-01-27] MEDS: ASPIRIN CHEW 81 MG TABLET PO SCH (10:33)
[2018-01-27] MEDS: CHOLECALCIFEROL 1,000 UNIT TABLET PO SCH (10:38)
[2018-01-27] MEDS ORDERED: traMADol 50 MG TABLET PO PRN (11:43)
[2018-01-27] MEDS: LORazepam 0.5 MG TABLET PO PRN ×2 (13:35→20:45)
[2018-01-27] MEDS: INSULIN LISPRO 100 UNIT/ML SUBCUT SCH ×2 (17:25→22:32)
[2018-01-27] MEDS: GABAPENTIN 300 MG CAPSULE PO SCH (20:44)
[2018-01-27] MEDS: methylPREDNISolone SOD SUC 40 MG/1 ML VIAL IV SCH (20:46)
[2018-01-27] MEDS ORDERED: cloNIDine 0.1 MG TABLET PO SCH (21:00)
[2018-01-27] MEDS: AZITHROMYCIN INJ 500 MG in SODIUM CHLORIDE 0.9% 250 ML IV SCH (23:38)
[2018-01-28] MEDS: ALBUTEROL/IPRATROPIUM 3 ML NEB RESP TX SCH ×6 (02:01→23:08)
[2018-01-28 05:01] LABS: Basophils % 0.3 % (0.0-0.8); Eosinophils % 0.5 % (0.00-10.9); Hematocrit 31.2 VOL% (42.0-52.0); Hemoglobin 10.1 GM/DL (14.0-18.0); Immature Granulocytes % 0.8 %; Immature Granulocytes Absolute 0.07 #; Lymphocytes # 0.7 10*3/uL (1.4-4.0); Lymphocytes % 7.6 % (21.2-54.2); Mean Corpuscular HGB Conc 32.4 GM/DL (32-36); Mean Corpuscular Hemoglobin 28 PG (27-34); Mean Platelet Volume 9.2 FL (9.6-12.0); Monocytes # 0.7 10*3/uL (0.11-0.8); Monocytes % 8.2 % (1.7-12.7); Neutrophils # 7.3 10*3/uL (1.4-7.4); Neutrophils % 82.6 % (38.7-73.9); Platelet Count 269 T/CUMM (130-400); Red Blood Count 3.63 MC/CUMM (3.8-5.5); Red Cell Distribution Width 23.5 % (9.3-17.3); White Blood Count 8.8 T/CUMM (4-12)
[2018-01-28 05:27] LABS: Calcium 8.7 MG/DL (8.5-10.1); Potassium 3.6 MMOL/L (3.5-5.1)
[2018-01-28 05:47] LABS: Hypochromasia 1+; Microcytosis 1+; Ovalocytes Slight
[2018-01-28 05:48] LABS: Platelet Estimate Normal
[2018-01-28] MEDS ORDERED: MAGNESIUM SULF RIDER 4 GM in PREMIX 1 EACH IV PRN (08:59)
[2018-01-28] MEDS ORDERED: MAGNESIUM SULF RIDER 2 GM in PREMIX 1 EACH IV PRN (08:59)
[2018-01-28] MEDS: CYANOCOBALAMIN 500 MCG TABLET PO SCH (09:58)
[2018-01-28] MEDS: MAGNESIUM OXIDE 400 MG TABLET PO SCH ×2 (09:58→21:04)
[2018-01-28] MEDS: PANTOPRAZOLE 40 MG TABLET PO SCH (09:59)
[2018-01-28] MEDS: CLOPIDOGREL 75 MG TABLET PO SCH (09:59)
[2018-01-28] MEDS: FOLIC ACID 1 MG TABLET PO SCH (09:59)
[2018-01-28] MEDS: cloNIDine 0.1 MG TABLET PO SCH ×3 (09:59→21:04)
[2018-01-28] MEDS: POTASSIUM CHLORIDE 8 MEQ CAPSULE PO SCH (10:00)
[2018-01-28] MEDS: busPIRone 5 MG TABLET PO SCH ×3 (10:00→21:03)
[2018-01-28] MEDS: SELENIUM 200 MCG TABLET PO SCH (10:00)
[2018-01-28] MEDS: amLODIPine 5 MG TABLET PO SCH (10:00)
[2018-01-28] MEDS: ASPIRIN CHEW 81 MG TABLET PO SCH (10:00)
[2018-01-28] MEDS: FERROUS SULFATE 325 MG TABLET PO SCH ×2 (10:00→21:03)
[2018-01-28] MEDS: TAMSULOSIN 0.4 MG CAPSULE PO SCH (10:00)
[2018-01-28] MEDS: ATORVASTATIN 20 MG TABLET PO SCH (10:00)
[2018-01-28] MEDS: PRIMIDONE 50 MG TABLET PO SCH ×3 (10:00→21:04)
[2018-01-28] MEDS: OXcarbazepine 300 MG TABLET PO SCH ×2 (10:00→21:03)
[2018-01-28] MEDS: CHOLECALCIFEROL 1,000 UNIT TABLET PO SCH (10:00)
[2018-01-28] MEDS: methylPREDNISolone SOD SUC 40 MG/1 ML VIAL IV SCH ×2 (10:01→21:04)
[2018-01-28] MEDS: INSULIN LISPRO 100 UNIT/ML SUBCUT SCH ×4 (10:14→21:04)
[2018-01-28] MEDS: SERTRALINE 25 MG TABLET PO SCH ×2 (10:16→21:03)
[2018-01-28] MEDS: CETIRIZINE 10 MG TABLET PO SCH (10:17)
[2018-01-28] MEDS: GABAPENTIN 300 MG CAPSULE PO SCH (21:04)
[2018-01-28] MEDS ORDERED: ALUMINUM/MAGNES/SIMETH MAX STR 30 ML UDCUP PO PRN (22:15)
[2018-01-28] MEDS: AZITHROMYCIN INJ 500 MG in SODIUM CHLORIDE 0.9% 250 ML IV SCH (22:29)
[2018-01-29] MEDS: LORazepam 0.5 MG TABLET PO PRN (00:01)
[2018-01-29] MEDS: cefTRIAXone 1,000 MG in SYRINGE 1 EACH IV SCH (00:01)
[2018-01-29] MEDS: ALBUTEROL/IPRATROPIUM 3 ML NEB RESP TX SCH ×6 (03:56→23:55)
[2018-01-29] MEDS: CHOLECALCIFEROL 1,000 UNIT TABLET PO SCH (09:18)
[2018-01-29] MEDS: SELENIUM 200 MCG TABLET PO SCH (09:18)
[2018-01-29] MEDS: POTASSIUM CHLORIDE 8 MEQ CAPSULE PO SCH (09:18)
[2018-01-29] MEDS: OXcarbazepine 300 MG TABLET PO SCH ×2 (09:19→21:57)
[2018-01-29] MEDS: ATORVASTATIN 20 MG TABLET PO SCH (09:19)
[2018-01-29] MEDS: PRIMIDONE 50 MG TABLET PO SCH ×3 (09:19→21:57)
[2018-01-29] MEDS: busPIRone 5 MG TABLET PO SCH ×3 (09:19→21:57)
[2018-01-29] MEDS: CYANOCOBALAMIN 500 MCG TABLET PO SCH (09:19)
[2018-01-29] MEDS: CLOPIDOGREL 75 MG TABLET PO SCH (09:19)
[2018-01-29] MEDS: PANTOPRAZOLE 40 MG TABLET PO SCH (09:20)
[2018-01-29] MEDS: methylPREDNISolone SOD SUC 40 MG/1 ML VIAL IV SCH ×2 (09:20→21:59)
[2018-01-29] MEDS: FERROUS SULFATE 325 MG TABLET PO SCH ×2 (09:20→21:57)
[2018-01-29] MEDS: FOLIC ACID 1 MG TABLET PO SCH (09:20)
[2018-01-29] MEDS: TAMSULOSIN 0.4 MG CAPSULE PO SCH (09:20)
[2018-01-29] MEDS: SERTRALINE 25 MG TABLET PO SCH ×2 (09:20→21:57)
[2018-01-29] MEDS: ASPIRIN CHEW 81 MG TABLET PO SCH (09:20)
[2018-01-29] MEDS: CETIRIZINE 10 MG TABLET PO SCH (09:20)
[2018-01-29] MEDS: INSULIN LISPRO 100 UNIT/ML SUBCUT SCH ×4 (09:21→22:03)
[2018-01-29] MEDS: amLODIPine 5 MG TABLET PO SCH (09:23)
[2018-01-29] MEDS: cloNIDine 0.1 MG TABLET PO SCH ×3 (09:23→21:57)
[2018-01-29] MEDS: MAGNESIUM OXIDE 400 MG TABLET PO SCH ×2 (09:23→21:56)
[2018-01-29] MEDS: GABAPENTIN 300 MG CAPSULE PO SCH (21:57)
[2018-01-29] MEDS: AZITHROMYCIN INJ 500 MG in SODIUM CHLORIDE 0.9% 250 ML IV SCH (22:02)
[2018-01-30] MEDS: cefTRIAXone 1,000 MG in SYRINGE 1 EACH IV SCH (00:36)
[2018-01-30] MEDS: LORazepam 0.5 MG TABLET PO PRN (00:49)
[2018-01-30] MEDS: ALBUTEROL/IPRATROPIUM 3 ML NEB RESP TX SCH ×2 (03:39→07:16)
[2018-01-30] MEDS: INSULIN LISPRO 100 UNIT/ML SUBCUT SCH (07:43)
[2018-01-30 08:13] LABS: Calcium 9.3 MG/DL (8.5-10.1); Osmolality,Calculated 290.1 MOS/KG (273-304)
[2018-01-30] MEDS: POTASSIUM CHLORIDE 8 MEQ CAPSULE PO SCH (08:46)
[2018-01-30] MEDS: SERTRALINE 25 MG TABLET PO SCH (08:46)
[2018-01-30] MEDS: CYANOCOBALAMIN 500 MCG TABLET PO SCH (08:46)
[2018-01-30] MEDS: CHOLECALCIFEROL 1,000 UNIT TABLET PO SCH (08:46)
[2018-01-30] MEDS: PANTOPRAZOLE 40 MG TABLET PO SCH (08:47)
[2018-01-30] MEDS: FOLIC ACID 1 MG TABLET PO SCH (08:47)
[2018-01-30] MEDS: TAMSULOSIN 0.4 MG CAPSULE PO SCH (08:47)
[2018-01-30] MEDS: methylPREDNISolone SOD SUC 40 MG/1 ML VIAL IV SCH (08:47)
[2018-01-30] MEDS: busPIRone 5 MG TABLET PO SCH (08:47)
[2018-01-30] MEDS: SELENIUM 200 MCG TABLET PO SCH (08:47)
[2018-01-30] MEDS: ASPIRIN CHEW 81 MG TABLET PO SCH (08:47)
[2018-01-30] MEDS: CLOPIDOGREL 75 MG TABLET PO SCH (08:47)
[2018-01-30] MEDS: CETIRIZINE 10 MG TABLET PO SCH (08:47)
[2018-01-30] MEDS: FERROUS SULFATE 325 MG TABLET PO SCH (08:47)
[2018-01-30] MEDS: PRIMIDONE 50 MG TABLET PO SCH (08:47)
[2018-01-30] MEDS: OXcarbazepine 300 MG TABLET PO SCH (08:47)
[2018-01-30] MEDS: ATORVASTATIN 20 MG TABLET PO SCH (08:47)
[2018-01-30] MEDS: cloNIDine 0.1 MG TABLET PO SCH (08:47)
[2018-01-30] MEDS: MAGNESIUM OXIDE 400 MG TABLET PO SCH (08:47)
[2018-01-30] MEDS: amLODIPine 5 MG TABLET PO SCH (08:47)
[2018-01-30 09:02] VITALS: BP 160/76
== END 2018-01-30 11:20 | disposition home health service (06) | DRG 190 ==
LOC: EDUNIT# → N.EDINP 20:11 → N.ED 20:11 → N.TELES 23:57
PROVIDERS: ADMIT Family Medicine; ATTEND Family Medicine

== ENCOUNTER 2019-08-19 13:30 | Inpatient (IN) ==
[2019-08-19] MEDS ORDERED: cefTRIAXone 1,000 MG in SODIUM CHLORIDE 0.9% 100 ML IV STA (14:15)
[2019-08-19] MEDS ORDERED: ALBUTEROL/IPRATROPIUM 3 ML NEB RESP TX STA (14:15)
[2019-08-19] MEDS ORDERED: methylPREDNISolone SOD SUC 125 MG/2 ML VIAL IV STA (14:15)
[2019-08-19 15:19] LABS: Alanine Aminotransferase 18 U/L (16-61); Albumin 3.4 G/DL (3.4-5.0); Alkaline Phosphatase 87 U/L (45-117); Aspartate Amino Transferase 17 U/L (0-37); Bilirubin,Total < 0.39 MG/DL (0.2-1.0); Blood Urea Nitrogen 26 MG/DL (7-18); Calcium 8.8 MG/DL (8.5-10.1); Estimated Glom Filtration Rate 50 ML/MIN; Glucose 109 MG/DL (74-106); Osmolality,Calculated 282.5 MOS/KG (273-304); Total Protein 6.8 G/DL (6.4-8.3)
[2019-08-19 15:41] LABS: Basophils # 0.1 10*3/uL (0.0-0.2); Eosinophils # 0.6 10*3/uL (0.0-0.87); Eosinophils % 9.2 % (0.00-10.9); Hematocrit 25.1 VOL% (42.0-52.0); Hemoglobin 7.2 GM/DL (14.0-18.0); Immature Granulocytes % 0.4 %; Immature Granulocytes Absolute 0.03 #; Lymphocytes % 15.1 % (21.2-54.2); Mean Corpuscular HGB Conc 28.7 GM/DL (32-36); Mean Corpuscular Volume 76.8 FL (87-102); Mean Platelet Volume 9.4 FL (9.6-12.0); Monocytes % 6.9 % (1.7-12.7); Neutrophils % 67.4 % (38.7-73.9); Platelet Count 277 T/CUMM (130-400); Red Blood Count 3.27 MC/CUMM (3.8-5.5); Red Cell Distribution Width 17.7 % (9.3-17.3); White Blood Count 6.8 T/CUMM (4-12)
[2019-08-19] MEDS: ONDANSETRON 4 MG/2 ML VIAL IV PRN (16:38)
[2019-08-19] MEDS: DOCUSATE SODIUM 100 MG CAPSULE PO SCH (21:04)
[2019-08-19] MEDS: ACETAMINOPHEN 325 MG TABLET PO PRN (21:04)
[2019-08-20] MEDS: ALBUTEROL/IPRATROPIUM 3 ML NEB RESP TX SCH ×4 (00:50→21:00)
[2019-08-20] MEDS: ACETAMINOPHEN 325 MG TABLET PO PRN ×2 (02:07→11:41)
[2019-08-20] MEDS ORDERED: SODIUM CHLORIDE 0.9% 1,000 ML IV PRN (07:22)
[2019-08-20 08:59] LABS: INR 0.9; PT Patient Result 10.3 SECS (9.6-12.2); Partial Thromboplastin Time 23.3 SECS (20.8-36.0)
[2019-08-20] MEDS: DOCUSATE SODIUM 100 MG CAPSULE PO SCH ×2 (09:15→20:55)
[2019-08-20] MEDS: CHOLECALCIFEROL 1,000 UNIT TABLET PO SCH (09:16)
[2019-08-20] MEDS: cloNIDine 0.1 MG TABLET PO SCH ×2 (09:16→20:55)
[2019-08-20] MEDS: PANTOPRAZOLE 40 MG TABLET PO SCH ×2 (09:16→20:55)
[2019-08-20 09:18] LABS: % Iron Saturation 3.6 % (18-50)
[2019-08-20] MEDS: ONDANSETRON 4 MG/2 ML VIAL IV PRN (10:05)
[2019-08-20] MEDS: ATORVASTATIN 20 MG TABLET PO SCH (17:36)
[2019-08-20] MEDS: ZALEPLON 5 MG CAPSULE PO PRN (20:55)
[2019-08-20] MEDS: CETIRIZINE 10 MG TABLET PO SCH (20:55)
[2019-08-20] MEDS: busPIRone 5 MG TABLET PO SCH (20:55)
[2019-08-21] MEDS: ALBUTEROL/IPRATROPIUM 3 ML NEB RESP TX SCH ×4 (01:30→19:52)
[2019-08-21 05:37] LABS: Hematocrit 30.3 VOL% (42.0-52.0); Hemoglobin 8.9 GM/DL (14.0-18.0)
[2019-08-21 07:22] LABS: Basophils # 0.1 10*3/uL (0.0-0.2); Basophils % 1.1 % (0.0-0.8); Eosinophils # 1.2 10*3/uL (0.0-0.87); Eosinophils % 14.6 % (0.00-10.9); Hematocrit 31.5 VOL% (42.0-52.0); Hemoglobin 9.3 GM/DL (14.0-18.0); Immature Granulocytes % 0.6 %; Immature Granulocytes Absolute 0.05 #; Lymphocytes # 0.8 10*3/uL (1.4-4.0); Lymphocytes % 9.5 % (21.2-54.2); Mean Corpuscular HGB Conc 29.5 GM/DL (32-36); Mean Corpuscular Volume 78.2 FL (87-102); Mean Platelet Volume 8.8 FL (9.6-12.0); Monocytes % 7.9 % (1.7-12.7); Neutrophils % 66.3 % (38.7-73.9); Platelet Count 265 T/CUMM (130-400); Red Blood Count 4.03 MC/CUMM (3.8-5.5); Red Cell Distribution Width 18.2 % (9.3-17.3); White Blood Count 8.1 T/CUMM (4-12)
[2019-08-21] MEDS ORDERED: POLYETHYLENE GLYCOL POWDER 17 GM PACK PO PRN (07:35)
[2019-08-21] MEDS ORDERED: ALBUTEROL/IPRATROPIUM 3 ML NEB RESP TX PRN (07:36)
[2019-08-21] MEDS ORDERED: DIPHENOXYLATE/ATROPINE 2.5-0.025 MG TABLET PO PRN (07:36)
[2019-08-21 07:41] LABS: Eosinophils 18 % (0-10); Hypochromasia 1+; Lymphocytes 5 % (20-55); Microcytosis 1+; Ovalocytes Few; Platelet Estimate Normal; Segmented Neutrophils 70 % (50-85); Total Cells Counted 100
[2019-08-21] MEDS ORDERED: LACTATED RINGERS 1,000 ML IV SCH (08:00)
[2019-08-21] MEDS ORDERED: propofoL 200 MG/20 ML VIAL IV ONE (09:00)
[2019-08-21] MEDS ORDERED: ETOMIDATE 20 MG/10 ML VIAL IV ONE (09:00)
[2019-08-21] MEDS ORDERED: LIDOCAINE 2% 5 ML VIAL ONE (09:00)
[2019-08-21] MEDS: OXcarbazepine 300 MG TABLET PO SCH ×2 (09:17→20:21)
[2019-08-21] MEDS: ANORO INH SCH (09:17)
[2019-08-21] MEDS: cloNIDine 0.1 MG TABLET PO SCH ×2 (09:17→20:22)
[2019-08-21] MEDS: CHOLECALCIFEROL 1,000 UNIT TABLET PO SCH (13:31)
[2019-08-21] MEDS: FERROUS SULFATE 325 MG TABLET PO SCH (13:31)
[2019-08-21] MEDS: SELENIUM 200 MCG TABLET PO SCH (13:31)
[2019-08-21] MEDS: PANTOPRAZOLE 40 MG TABLET PO SCH ×2 (13:31→20:22)
[2019-08-21] MEDS: LACTOBACILLUS ACIDOPHILUS/BULGARICUS CAPLET PO SCH (13:31)
[2019-08-21] MEDS: DOCUSATE SODIUM 100 MG CAPSULE PO SCH ×2 (13:31→20:22)
[2019-08-21] MEDS: PRIMIDONE 50 MG TABLET PO SCH ×3 (13:32→20:22)
[2019-08-21] MEDS: MAGNESIUM OXIDE 400 MG TABLET PO SCH ×2 (13:32→20:21)
[2019-08-21] MEDS: FOLIC ACID 1 MG TABLET PO SCH (13:32)
[2019-08-21] MEDS: TAMSULOSIN 0.4 MG CAPSULE PO SCH (13:32)
[2019-08-21] MEDS: SERTRALINE 25 MG TABLET PO SCH ×2 (13:32→20:21)
[2019-08-21] MEDS: CYANOCOBALAMIN 500 MCG TABLET PO SCH (13:32)
[2019-08-21] MEDS: ATORVASTATIN 20 MG TABLET PO SCH (18:14)
[2019-08-21] MEDS: CETIRIZINE 10 MG TABLET PO SCH (20:21)
[2019-08-21] MEDS: GABAPENTIN 300 MG CAPSULE PO SCH (20:21)
[2019-08-21] MEDS: busPIRone 5 MG TABLET PO SCH (20:22)
[2019-08-22] MEDS: ALBUTEROL/IPRATROPIUM 3 ML NEB RESP TX SCH ×4 (00:38→19:27)
[2019-08-22 05:53] LABS: Basophils # 0.1 10*3/uL (0.0-0.2); Basophils % 1.1 % (0.0-0.8); Eosinophils % 14.8 % (0.00-10.9); Hemoglobin 9.4 GM/DL (14.0-18.0); Immature Granulocytes % 0.5 %; Immature Granulocytes Absolute 0.03 #; Lymphocytes # 0.9 10*3/uL (1.4-4.0); Mean Corpuscular HGB Conc 28.6 GM/DL (32-36); Mean Corpuscular Volume 78.7 FL (87-102); Monocytes % 9.4 % (1.7-12.7); Neutrophils % 61.2 % (38.7-73.9); Platelet Count 254 T/CUMM (130-400); Red Blood Count 4.18 MC/CUMM (3.8-5.5); Red Cell Distribution Width 18.3 % (9.3-17.3); White Blood Count 6.6 T/CUMM (4-12)
[2019-08-22 06:10] LABS: Hematocrit 31.2 VOL% (42.0-52.0)
[2019-08-22 07:04] LABS: Eosinophils 21 % (0-10); Hypochromasia 1+; Lymphocytes 11 % (20-55); Microcytosis 1+; Ovalocytes Few; Segmented Neutrophils 56 % (50-85); Target Cells Slight; Tear Drop Cells Slight; Total Cells Counted 100
[2019-08-22] MEDS: FOLIC ACID 1 MG TABLET PO SCH (09:10)
[2019-08-22] MEDS: SELENIUM 200 MCG TABLET PO SCH (09:10)
[2019-08-22] MEDS: TAMSULOSIN 0.4 MG CAPSULE PO SCH (09:10)
[2019-08-22] MEDS: MAGNESIUM OXIDE 400 MG TABLET PO SCH ×2 (09:10→20:43)
[2019-08-22] MEDS: CHOLECALCIFEROL 1,000 UNIT TABLET PO SCH (09:10)
[2019-08-22] MEDS: CYANOCOBALAMIN 500 MCG TABLET PO SCH (09:10)
[2019-08-22] MEDS: OXcarbazepine 300 MG TABLET PO SCH ×2 (09:11→20:44)
[2019-08-22] MEDS: ANORO INH SCH (09:11)
[2019-08-22] MEDS: LACTOBACILLUS ACIDOPHILUS/BULGARICUS CAPLET PO SCH (09:11)
[2019-08-22] MEDS: PRIMIDONE 50 MG TABLET PO SCH ×3 (09:11→20:44)
[2019-08-22] MEDS: DOCUSATE SODIUM 100 MG CAPSULE PO SCH ×2 (09:11→20:45)
[2019-08-22] MEDS: SERTRALINE 25 MG TABLET PO SCH ×2 (09:11→20:44)
[2019-08-22] MEDS: PANTOPRAZOLE 40 MG TABLET PO SCH ×2 (09:11→20:44)
[2019-08-22] MEDS: cloNIDine 0.1 MG TABLET PO SCH ×2 (09:11→20:44)
[2019-08-22] MEDS: ATORVASTATIN 20 MG TABLET PO SCH (18:15)
[2019-08-22] MEDS: CETIRIZINE 10 MG TABLET PO SCH (20:43)
[2019-08-22] MEDS: GABAPENTIN 300 MG CAPSULE PO SCH (20:44)
[2019-08-22] MEDS: busPIRone 5 MG TABLET PO SCH (20:44)
[2019-08-23] MEDS: ALBUTEROL/IPRATROPIUM 3 ML NEB RESP TX SCH ×4 (00:22→19:58)
[2019-08-23] MEDS: SERTRALINE 25 MG TABLET PO SCH ×2 (08:20→21:27)
[2019-08-23] MEDS: LACTOBACILLUS ACIDOPHILUS/BULGARICUS CAPLET PO SCH (08:21)
[2019-08-23] MEDS: CYANOCOBALAMIN 500 MCG TABLET PO SCH (08:21)
[2019-08-23] MEDS: PRIMIDONE 50 MG TABLET PO SCH ×3 (08:21→21:27)
[2019-08-23] MEDS: DOCUSATE SODIUM 100 MG CAPSULE PO SCH ×2 (08:21→21:27)
[2019-08-23] MEDS: CHOLECALCIFEROL 1,000 UNIT TABLET PO SCH (08:21)
[2019-08-23] MEDS: TAMSULOSIN 0.4 MG CAPSULE PO SCH (08:21)
[2019-08-23] MEDS: SELENIUM 200 MCG TABLET PO SCH (08:21)
[2019-08-23] MEDS: OXcarbazepine 300 MG TABLET PO SCH ×2 (08:21→21:27)
[2019-08-23] MEDS: FOLIC ACID 1 MG TABLET PO SCH (08:21)
[2019-08-23] MEDS: cloNIDine 0.1 MG TABLET PO SCH ×2 (08:21→21:27)
[2019-08-23] MEDS: PANTOPRAZOLE 40 MG TABLET PO SCH ×2 (08:22→21:28)
[2019-08-23] MEDS: MAGNESIUM OXIDE 400 MG TABLET PO SCH ×2 (08:27→21:27)
[2019-08-23] MEDS: ANORO INH SCH (08:37)
[2019-08-23] MEDS: ATORVASTATIN 20 MG TABLET PO SCH (18:16)
[2019-08-23] MEDS: CETIRIZINE 10 MG TABLET PO SCH (21:28)
[2019-08-23] MEDS: busPIRone 5 MG TABLET PO SCH (21:28)
[2019-08-23] MEDS: GABAPENTIN 300 MG CAPSULE PO SCH (21:28)
[2019-08-24] MEDS: ALBUTEROL/IPRATROPIUM 3 ML NEB RESP TX SCH ×4 (01:41→19:35)
[2019-08-24 06:42] LABS: Albumin 3.2 G/DL (3.4-5.0); Basophils # 0.1 10*3/uL (0.0-0.2); Basophils % 0.9 % (0.0-0.8); Bilirubin,Total 0.5 MG/DL (0.2-1.0); Calcium 8.4 MG/DL (8.5-10.1); Eosinophils # 0.9 10*3/uL (0.0-0.87); Eosinophils % 14.3 % (0.00-10.9); Hematocrit 33.1 VOL% (42.0-52.0); Immature Granulocytes % 0.6 %; Immature Granulocytes Absolute 0.04 #; Lymphocytes % 14.6 % (21.2-54.2); Mean Corpuscular HGB Conc 28.4 GM/DL (32-36); Mean Corpuscular Volume 79.2 FL (87-102); Mean Platelet Volume 8.7 FL (9.6-12.0); Monocytes % 9.3 % (1.7-12.7); Neutrophils % 60.3 % (38.7-73.9); Osmolality,Calculated 286.3 MOS/KG (273-304); Platelet Count 255 T/CUMM (130-400); Red Blood Count 4.18 MC/CUMM (3.8-5.5); Red Cell Distribution Width 18.3 % (9.3-17.3); Total Protein 6.9 G/DL (6.4-8.3); White Blood Count 6.6 T/CUMM (4-12)
[2019-08-24 06:50] LABS: Hemoglobin 9.4 GM/DL (14.0-18.0)
[2019-08-24 07:08] LABS: Eosinophils 8 % (0-10); Hypochromasia 1+; Lymphocytes 22 % (20-55); Ovalocytes Slight; Platelet Estimate Adequate; Segmented Neutrophils 66 % (50-85); Total Cells Counted 100
[2019-08-24 07:09] LABS: Microcytosis 1+
[2019-08-24] MEDS: PRIMIDONE 50 MG TABLET PO SCH ×3 (08:55→20:59)
[2019-08-24] MEDS: CHOLECALCIFEROL 1,000 UNIT TABLET PO SCH (08:56)
[2019-08-24] MEDS: PANTOPRAZOLE 40 MG TABLET PO SCH ×2 (08:56→20:59)
[2019-08-24] MEDS: CYANOCOBALAMIN 500 MCG TABLET PO SCH (08:56)
[2019-08-24] MEDS: SELENIUM 200 MCG TABLET PO SCH (08:56)
[2019-08-24] MEDS: DOCUSATE SODIUM 100 MG CAPSULE PO SCH ×2 (08:56→22:54)
[2019-08-24] MEDS: TAMSULOSIN 0.4 MG CAPSULE PO SCH (08:56)
[2019-08-24] MEDS: SERTRALINE 25 MG TABLET PO SCH ×2 (08:56→21:04)
[2019-08-24] MEDS: MAGNESIUM OXIDE 400 MG TABLET PO SCH ×2 (08:56→20:59)
[2019-08-24] MEDS: FOLIC ACID 1 MG TABLET PO SCH (08:56)
[2019-08-24] MEDS: LACTOBACILLUS ACIDOPHILUS/BULGARICUS CAPLET PO SCH (08:56)
[2019-08-24] MEDS: cloNIDine 0.1 MG TABLET PO SCH ×2 (08:56→20:59)
[2019-08-24] MEDS: OXcarbazepine 300 MG TABLET PO SCH ×2 (08:56→20:59)
[2019-08-24] MEDS: ANORO INH SCH (09:46)
[2019-08-24] MEDS ORDERED: BISACODYL 5 MG TABLET PO ONE (12:00)
[2019-08-24] MEDS: SODIUM CHLORIDE 0.45% 1,000 ML IV SCH ×2 (13:14→23:11)
[2019-08-24] MEDS ORDERED: POLYETHYLENE GLYCOL POWDER 255 GM BOTTLE PO ONE (16:00)
[2019-08-24] MEDS: ATORVASTATIN 20 MG TABLET PO SCH (17:00)
[2019-08-24] MEDS: GABAPENTIN 300 MG CAPSULE PO SCH (20:59)
[2019-08-24] MEDS: CETIRIZINE 10 MG TABLET PO SCH (20:59)
[2019-08-24] MEDS: busPIRone 5 MG TABLET PO SCH (20:59)
[2019-08-25] MEDS: ALBUTEROL/IPRATROPIUM 3 ML NEB RESP TX SCH ×4 (00:36→20:12)
[2019-08-25] MEDS ORDERED: MAGNESIUM CITRATE 300 ML BOTTLE PO ONE (06:00)
[2019-08-25 07:20] LABS: Calcium 8.3 MG/DL (8.5-10.1); Osmolality,Calculated 277.7 MOS/KG (273-304)
[2019-08-25 07:55] LABS: Basophils # 0.1 10*3/uL (0.0-0.2); Basophils % 1.1 % (0.0-0.8); Eosinophils # 1.1 10*3/uL (0.0-0.87); Eosinophils % 12.5 % (0.00-10.9); Hematocrit 32.4 VOL% (42.0-52.0); Immature Granulocytes % 0.7 %; Immature Granulocytes Absolute 0.06 #; Lymphocytes # 1.1 10*3/uL (1.4-4.0); Lymphocytes % 12.9 % (21.2-54.2); Mean Corpuscular HGB Conc 28.7 GM/DL (32-36); Mean Corpuscular Volume 78.6 FL (87-102); Mean Platelet Volume 9.5 FL (9.6-12.0); Monocytes % 9.8 % (1.7-12.7); Platelet Count 257 T/CUMM (130-400); Red Blood Count 4.12 MC/CUMM (3.8-5.5); Red Cell Distribution Width 18.3 % (9.3-17.3); White Blood Count 8.4 T/CUMM (4-12)
[2019-08-25 07:56] LABS: Hemoglobin 9.3 GM/DL (14.0-18.0)
[2019-08-25 07:58] LABS: Eosinophils 12 % (0-10); Hypochromasia 1+; Lymphocytes 12 % (20-55); Ovalocytes Slight; Platelet Estimate Adequate; Segmented Neutrophils 70 % (50-85); Total Cells Counted 100
[2019-08-25 07:59] LABS: Microcytosis 1+
[2019-08-25] MEDS ORDERED: LIDOCAINE 2% 5 ML VIAL ONE (09:00)
[2019-08-25] MEDS ORDERED: propofoL 200 MG/20 ML VIAL IV ONE (09:00)
[2019-08-25] MEDS: OXcarbazepine 300 MG TABLET PO SCH ×2 (09:10→20:13)
[2019-08-25] MEDS: PRIMIDONE 50 MG TABLET PO SCH ×3 (09:10→20:05)
[2019-08-25] MEDS: cloNIDine 0.1 MG TABLET PO SCH ×2 (09:10→20:05)
[2019-08-25] MEDS: SODIUM CHLORIDE 0.45% 1,000 ML IV SCH ×2 (09:11→22:59)
[2019-08-25] MEDS ORDERED: LACTATED RINGERS 1,000 ML IV SCH (10:00)
[2019-08-25] MEDS: MAGNESIUM OXIDE 400 MG TABLET PO SCH ×2 (14:54→20:05)
[2019-08-25] MEDS: CHOLECALCIFEROL 1,000 UNIT TABLET PO SCH (14:54)
[2019-08-25] MEDS: LACTOBACILLUS ACIDOPHILUS/BULGARICUS CAPLET PO SCH (14:55)
[2019-08-25] MEDS: CYANOCOBALAMIN 500 MCG TABLET PO SCH (14:55)
[2019-08-25] MEDS: PANTOPRAZOLE 40 MG TABLET PO SCH ×2 (14:55→20:05)
[2019-08-25] MEDS: DOCUSATE SODIUM 100 MG CAPSULE PO SCH ×2 (14:55→20:05)
[2019-08-25] MEDS: SELENIUM 200 MCG TABLET PO SCH (14:55)
[2019-08-25] MEDS: FERROUS SULFATE 325 MG TABLET PO SCH (14:56)
[2019-08-25] MEDS: FOLIC ACID 1 MG TABLET PO SCH (14:56)
[2019-08-25] MEDS: TAMSULOSIN 0.4 MG CAPSULE PO SCH (14:56)
[2019-08-25] MEDS: SERTRALINE 25 MG TABLET PO SCH ×2 (14:56→20:05)
[2019-08-25] MEDS: ANORO INH SCH (14:57)
[2019-08-25] MEDS: ATORVASTATIN 20 MG TABLET PO SCH (17:23)
[2019-08-25] MEDS: ACETAMINOPHEN 325 MG TABLET PO PRN (20:04)
[2019-08-25] MEDS: CETIRIZINE 10 MG TABLET PO SCH (20:05)
[2019-08-25] MEDS: busPIRone 5 MG TABLET PO SCH (20:05)
[2019-08-25] MEDS: GABAPENTIN 300 MG CAPSULE PO SCH (20:05)
[2019-08-25] MEDS: ZALEPLON 5 MG CAPSULE PO PRN (20:05)
[2019-08-26] MEDS: ALBUTEROL/IPRATROPIUM 3 ML NEB RESP TX SCH ×4 (01:35→19:19)
[2019-08-26 06:31] LABS: Neutrophils % 59.8 % (38.7-73.9)
[2019-08-26 07:00] LABS: Basophils # 0.1 10*3/uL (0.0-0.2); Basophils % 1.3 % (0.0-0.8); Eosinophils # 0.9 10*3/uL (0.0-0.87); Eosinophils % 15.3 % (0.00-10.9); Hematocrit 31.2 VOL% (42.0-52.0); Immature Granulocytes % 0.5 %; Immature Granulocytes Absolute 0.03 #; Lymphocytes # 0.9 10*3/uL (1.4-4.0); Lymphocytes % 14.8 % (21.2-54.2); Mean Corpuscular HGB Conc 28.8 GM/DL (32-36); Mean Corpuscular Volume 77.4 FL (87-102); Mean Platelet Volume 9.6 FL (9.6-12.0); Monocytes % 8.3 % (1.7-12.7); Platelet Count 236 T/CUMM (130-400); Red Blood Count 4.03 MC/CUMM (3.8-5.5)
[2019-08-26 07:06] LABS: Eosinophils 9 % (0-10); Hypochromasia 1+; Lymphocytes 11 % (20-55); Ovalocytes Slight; Platelet Estimate Adequate; Segmented Neutrophils 76 % (50-85); Total Cells Counted 100
[2019-08-26 07:07] LABS: Microcytosis 1+
[2019-08-26] MEDS: SELENIUM 200 MCG TABLET PO SCH (09:18)
[2019-08-26] MEDS: CHOLECALCIFEROL 1,000 UNIT TABLET PO SCH (09:18)
[2019-08-26] MEDS: MAGNESIUM OXIDE 400 MG TABLET PO SCH ×2 (09:18→21:00)
[2019-08-26] MEDS: SODIUM CHLORIDE 0.45% 1,000 ML IV SCH (09:18)
[2019-08-26] MEDS: LACTOBACILLUS ACIDOPHILUS/BULGARICUS CAPLET PO SCH (09:18)
[2019-08-26] MEDS: SERTRALINE 25 MG TABLET PO SCH ×2 (09:19→21:01)
[2019-08-26] MEDS: OXcarbazepine 300 MG TABLET PO SCH ×2 (09:19→21:00)
[2019-08-26] MEDS: CYANOCOBALAMIN 500 MCG TABLET PO SCH (09:19)
[2019-08-26] MEDS: DOCUSATE SODIUM 100 MG CAPSULE PO SCH ×2 (09:19→21:00)
[2019-08-26] MEDS: FOLIC ACID 1 MG TABLET PO SCH (09:19)
[2019-08-26] MEDS: cloNIDine 0.1 MG TABLET PO SCH ×2 (09:19→21:00)
[2019-08-26] MEDS: PANTOPRAZOLE 40 MG TABLET PO SCH ×2 (09:19→21:00)
[2019-08-26] MEDS: TAMSULOSIN 0.4 MG CAPSULE PO SCH (09:19)
[2019-08-26] MEDS: PRIMIDONE 50 MG TABLET PO SCH ×3 (09:19→21:00)
[2019-08-26] MEDS: ANORO INH SCH (11:51)
[2019-08-26] MEDS: ATORVASTATIN 20 MG TABLET PO SCH (17:00)
[2019-08-26] MEDS: CETIRIZINE 10 MG TABLET PO SCH (21:00)
[2019-08-26] MEDS: ZALEPLON 5 MG CAPSULE PO PRN (21:00)
[2019-08-26] MEDS: busPIRone 5 MG TABLET PO SCH (21:00)
[2019-08-26] MEDS: ACETAMINOPHEN 325 MG TABLET PO PRN (21:00)
[2019-08-26] MEDS: GABAPENTIN 300 MG CAPSULE PO SCH (21:01)
[2019-08-27] MEDS: ALBUTEROL/IPRATROPIUM 3 ML NEB RESP TX SCH ×2 (00:33→07:50)
[2019-08-27] MEDS: SODIUM CHLORIDE 0.45% 1,000 ML IV SCH (06:09)
[2019-08-27] MEDS: TAMSULOSIN 0.4 MG CAPSULE PO SCH (12:10)
[2019-08-27] MEDS: cloNIDine 0.1 MG TABLET PO SCH (12:10)
[2019-08-27] MEDS: PRIMIDONE 50 MG TABLET PO SCH (12:10)
[2019-08-27] MEDS: FOLIC ACID 1 MG TABLET PO SCH (12:10)
[2019-08-27] MEDS: MAGNESIUM OXIDE 400 MG TABLET PO SCH (12:10)
[2019-08-27] MEDS: LACTOBACILLUS ACIDOPHILUS/BULGARICUS CAPLET PO SCH (12:10)
[2019-08-27] MEDS: CHOLECALCIFEROL 1,000 UNIT TABLET PO SCH (12:10)
[2019-08-27] MEDS: PANTOPRAZOLE 40 MG TABLET PO SCH (12:11)
[2019-08-27] MEDS: SERTRALINE 25 MG TABLET PO SCH (12:11)
[2019-08-27] MEDS: DOCUSATE SODIUM 100 MG CAPSULE PO SCH (12:11)
[2019-08-27] MEDS: OXcarbazepine 300 MG TABLET PO SCH (12:11)
[2019-08-27] MEDS: ANORO INH SCH (12:11)
[2019-08-27] MEDS: CYANOCOBALAMIN 500 MCG TABLET PO SCH (12:11)
[2019-08-27] MEDS: SELENIUM 200 MCG TABLET PO SCH (12:11)
[2019-08-27 12:12] VITALS: BP 147/87
== END 2019-08-27 13:42 | disposition home health service (06) | DRG 812 ==
LOC: EDBD → EDUNIT# → N.ED 13:30 → N.EDINP 13:30 → N.2W 16:57 → N.2E 08-20 17:04
PROVIDERS: ADMIT Family Medicine; ATTEND Family Medicine

== ENCOUNTER 2020-12-29 14:43 | Inpatient (IN) ==
[2020-12-29 15:12] LABS: Basophils # 0.1 10*3/uL (0.0-0.2); Basophils % 0.9 % (0.0-0.8); Eosinophils # 0.5 10*3/uL (0.0-0.87); Eosinophils % 6.8 % (0.00-10.9); Hematocrit 35.4 VOL% (42.0-52.0); Hemoglobin 11.6 GM/DL (14.0-18.0); Immature Granulocytes % 0.9 %; Immature Granulocytes Absolute 0.07 #; Lymphocytes # 0.8 10*3/uL (1.4-4.0); Lymphocytes % 10.3 % (21.2-54.2); Mean Corpuscular HGB Conc 32.8 GM/DL (32-36); Mean Corpuscular Volume 95.7 FL (87-102); Monocytes % 7.9 % (1.7-12.7); Neutrophils % 73.2 % (38.7-73.9); Platelet Count 199 T/CUMM (130-400); Red Cell Distribution Width 13.6 % (9.3-17.3); White Blood Count 7.9 T/CUMM (4-12)
[2020-12-29 15:19] LABS: INR 0.9; PT Patient Result 10.7 SECS (10.5-12.0)
[2020-12-29] MEDS ORDERED: ONDANSETRON 4 MG/2 ML VIAL IV PRN (15:27)
[2020-12-29 15:28] LABS: Albumin 3.5 G/DL (3.4-5.0); Bilirubin,Total 0.9 MG/DL (0.20-1.00); Calcium 9.1 MG/DL (8.5-10.1); Osmolality,Calculated 280.4 MOS/KG (273-304); Potassium 3.5 MMOL/L (3.5-5.1); Total Protein 6.7 G/DL (6.4-8.2)
[2020-12-29] MEDS: SODIUM CHLORIDE 0.9% 1,000 ML IV SCH (18:03)
[2020-12-29] MEDS: DOCUSATE SODIUM 100 MG CAPSULE PO SCH (20:15)
[2020-12-29 21:25] LABS: Hematocrit 33.8 VOL% (42.0-52.0); Hemoglobin 11.4 GM/DL (14.0-18.0)
[2020-12-30] MEDS: SODIUM CHLORIDE 0.9% 1,000 ML IV SCH ×3 (01:14→07:30)
[2020-12-30] MEDS ORDERED: ALBUTEROL/IPRATROPIUM 3 ML NEB RESP TX ONE ×2 (03:30→03:32)
[2020-12-30] MEDS ORDERED: hydrALAZINE 20 MG/1 ML VIAL IV ONE (03:52)
[2020-12-30] MEDS ORDERED: LORazepam 2 MG/1 ML VIAL IV ONE (03:55)
[2020-12-30 04:14] LABS: INR 0.9; PT Patient Result 10.7 SECS (10.5-12.0); Partial Thromboplastin Time 26.2 SECS (23.9-33.8)
[2020-12-30 04:26] LABS: Basophils # 0.1 10*3/uL (0.0-0.2); Basophils % 0.7 % (0.0-0.8); Eosinophils # 1.1 10*3/uL (0.0-0.87); Eosinophils % 8.3 % (0.00-10.9); Hematocrit 41.6 VOL% (42.0-52.0); Hemoglobin 13.2 GM/DL (14.0-18.0); Immature Granulocytes Absolute 0.13 #; Lymphocytes # 3.9 10*3/uL (1.4-4.0); Lymphocytes % 28.5 % (21.2-54.2); Mean Corpuscular HGB Conc 31.7 GM/DL (32-36); Mean Corpuscular Volume 98.6 FL (87-102); Monocytes % 8.2 % (1.7-12.7); Neutrophils % 53.3 % (38.7-73.9); Platelet Count 263 T/CUMM (130-400); Red Blood Count 4.22 MC/CUMM (3.8-5.5); Red Cell Distribution Width 13.5 % (9.3-17.3); White Blood Count 13.7 T/CUMM (4-12)
[2020-12-30] MEDS ORDERED: MORPHINE 2 MG/1 ML SYRINGE IV ONE (04:31)
[2020-12-30] MEDS ORDERED: methylPREDNISolone SOD SUC 125 MG/2 ML VIAL IV ONE (04:31)
[2020-12-30 04:32] LABS: ABG HCO3 24.5 MMOL/L (20-26); ABG Oxygen Saturation 94.6 % (95-100); ABG PCO2 54.1 MM HG (35-48); ABG PH 7.274 (7.35-7.45); ABG PO2 83.4 MM HG (80-95); ABG TCO2 26.2 MMOL/L (23-27); Allen Test Positive
[2020-12-30 05:00] LABS: Calcium 8.9 MG/DL (8.5-10.1); Osmolality,Calculated 281.4 MOS/KG (273-304); Potassium 4.7 MMOL/L (3.5-5.1)
[2020-12-30] MEDS ORDERED: LORazepam 2 MG/1 ML VIAL IV PRN (05:09)
[2020-12-30] MEDS ORDERED: MORPHINE 2 MG/1 ML SYRINGE IV PRN (05:09)
[2020-12-30] MEDS ORDERED: ALBUTEROL 2.5 MG/3 ML NEB RESP TX PRN (05:10)
[2020-12-30] MEDS ORDERED: hydrALAZINE 20 MG/1 ML VIAL IV PRN (05:53)
[2020-12-30] MEDS ORDERED: ENOXAPARIN 40 MG/0.4 ML SYRINGE SUBCUT SCH (06:00)
[2020-12-30] MEDS ORDERED: DIPHENOXYLATE/ATROPINE 2.5-0.025 MG TABLET PO PRN (06:13)
[2020-12-30 06:38] LABS: Hemoglobin 11.6 GM/DL (14.0-18.0)
[2020-12-30] MEDS: ALBUTEROL/IPRATROPIUM 3 ML NEB RESP TX SCH ×3 (07:18→18:12)
[2020-12-30] MEDS ORDERED: FUROSEMIDE 40 MG/4 ML VIAL IV ONE (08:41)
[2020-12-30] MEDS ORDERED: NON-FORMULARY MEDICATION (Omeprazole 20 MG capsule,delayed release(DR/EC)) PO SCH (09:00)
[2020-12-30] MEDS: methylPREDNISolone SOD SUC 40 MG/1 ML VIAL IV SCH ×3 (09:30→21:30)
[2020-12-30] MEDS: FOLIC ACID 1 MG TABLET PO SCH (09:40)
[2020-12-30] MEDS: LACTOBACILLUS ACIDOPHILUS/BULGARICUS CAPLET PO SCH (09:40)
[2020-12-30] MEDS: PRIMIDONE 50 MG TABLET PO SCH ×3 (09:40→21:24)
[2020-12-30] MEDS: ATORVASTATIN 20 MG TABLET PO SCH (09:40)
[2020-12-30] MEDS: SERTRALINE 50 MG TABLET PO SCH ×2 (09:40→21:25)
[2020-12-30] MEDS: FERROUS SULFATE 325 MG TABLET PO SCH (09:40)
[2020-12-30] MEDS: OXcarbazepine 300 MG TABLET PO SCH ×2 (09:40→21:24)
[2020-12-30] MEDS: CYANOCOBALAMIN 500 MCG TABLET PO SCH (09:40)
[2020-12-30] MEDS: cloNIDine 0.1 MG TABLET PO SCH ×2 (09:40→21:24)
[2020-12-30] MEDS: busPIRone 5 MG TABLET PO SCH ×3 (09:40→21:24)
[2020-12-30] MEDS: PANTOPRAZOLE 40 MG TABLET PO SCH (09:40)
[2020-12-30] MEDS: TAMSULOSIN 0.4 MG CAPSULE PO SCH (09:40)
[2020-12-30] MEDS: DOCUSATE SODIUM 100 MG CAPSULE PO SCH ×2 (09:40→21:25)
[2020-12-30] MEDS: CHOLECALCIFEROL 1,000 UNIT TABLET PO SCH (09:40)
[2020-12-30 10:01] LABS: ABG Base Excess 0.2 MMOL/L (-2.5-2.5); ABG HCO3 24.6 MMOL/L (20-26); ABG Oxygen Saturation 95.6 % (95-100); ABG PH 7.409 (7.35-7.45); ABG TCO2 21.8 MMOL/L (23-27); Allen Test Positive
[2020-12-30] MEDS: ACETAMINOPHEN 325 MG TABLET PO PRN (12:00)
[2020-12-30 14:33] LABS: Hematocrit 38.2 VOL% (42.0-52.0); Hemoglobin 12.4 GM/DL (14.0-18.0)
[2020-12-30] MEDS: GABAPENTIN 300 MG CAPSULE PO SCH (21:24)
[2020-12-30 22:52] LABS: Hematocrit 35.8 VOL% (42.0-52.0)
[2020-12-31] MEDS: ALBUTEROL/IPRATROPIUM 3 ML NEB RESP TX SCH ×4 (00:07→19:37)
[2020-12-31 05:45] LABS: Basophils % 0.2 % (0.0-0.8); Hematocrit 36.8 VOL% (42.0-52.0); Hemoglobin 12.4 GM/DL (14.0-18.0); Immature Granulocytes % 0.8 %; Immature Granulocytes Absolute 0.09 #; Lymphocytes # 0.5 10*3/uL (1.4-4.0); Lymphocytes % 4.7 % (21.2-54.2); Mean Corpuscular HGB Conc 33.7 GM/DL (32-36); Mean Corpuscular Volume 91.8 FL (87-102); Mean Platelet Volume 9.1 FL (9.6-12.0); Monocytes % 6.8 % (1.7-12.7); Neutrophils % 87.5 % (38.7-73.9); Platelet Count 232 T/CUMM (130-400); Red Blood Count 4.01 MC/CUMM (3.8-5.5); Red Cell Distribution Width 13.2 % (9.3-17.3); White Blood Count 11.2 T/CUMM (4-12)
[2020-12-31 06:04] LABS: Albumin 3.8 G/DL (3.4-5.0); Bilirubin,Total 0.8 MG/DL (0.20-1.00); Calcium 9.1 MG/DL (8.5-10.1); Osmolality,Calculated 279.7 MOS/KG (273-304); Potassium 3.9 MMOL/L (3.5-5.1); Total Protein 7.4 G/DL (6.4-8.2)
[2020-12-31] MEDS: methylPREDNISolone SOD SUC 40 MG/1 ML VIAL IV SCH ×4 (06:14→23:25)
[2020-12-31 06:54] LABS: Total Cells Counted 100
[2020-12-31 06:55] LABS: Lymphocytes 4 % (20-55); Platelet Estimate Normal; Segmented Neutrophils 91 % (50-85)
[2020-12-31] MEDS: CHOLECALCIFEROL 1,000 UNIT TABLET PO SCH (08:25)
[2020-12-31] MEDS: LACTOBACILLUS ACIDOPHILUS/BULGARICUS CAPLET PO SCH (08:25)
[2020-12-31] MEDS: TAMSULOSIN 0.4 MG CAPSULE PO SCH (08:26)
[2020-12-31] MEDS: OXcarbazepine 300 MG TABLET PO SCH ×2 (08:26→21:20)
[2020-12-31] MEDS: FOLIC ACID 1 MG TABLET PO SCH (08:26)
[2020-12-31] MEDS: ATORVASTATIN 20 MG TABLET PO SCH (08:26)
[2020-12-31] MEDS: FERROUS SULFATE 325 MG TABLET PO SCH (08:27)
[2020-12-31] MEDS: busPIRone 5 MG TABLET PO SCH ×3 (08:27→21:20)
[2020-12-31] MEDS: PANTOPRAZOLE 40 MG TABLET PO SCH (08:28)
[2020-12-31] MEDS: SERTRALINE 50 MG TABLET PO SCH ×2 (08:28→21:20)
[2020-12-31] MEDS: cloNIDine 0.1 MG TABLET PO SCH ×2 (08:28→21:20)
[2020-12-31] MEDS: PRIMIDONE 50 MG TABLET PO SCH ×3 (08:28→21:21)
[2020-12-31] MEDS: DOCUSATE SODIUM 100 MG CAPSULE PO SCH ×2 (08:28→21:21)
[2020-12-31] MEDS: CYANOCOBALAMIN 500 MCG TABLET PO SCH (08:29)
[2020-12-31] MEDS: GABAPENTIN 300 MG CAPSULE PO SCH (21:20)
[2021-01-01] MEDS: ALBUTEROL/IPRATROPIUM 3 ML NEB RESP TX SCH ×4 (01:06→19:30)
[2021-01-01] MEDS: methylPREDNISolone SOD SUC 40 MG/1 ML VIAL IV SCH ×2 (03:34→15:36)
[2021-01-01] MEDS: SERTRALINE 50 MG TABLET PO SCH ×2 (08:24→20:39)
[2021-01-01] MEDS: PANTOPRAZOLE 40 MG TABLET PO SCH (08:24)
[2021-01-01] MEDS: busPIRone 5 MG TABLET PO SCH ×3 (08:24→20:39)
[2021-01-01] MEDS: LACTOBACILLUS ACIDOPHILUS/BULGARICUS CAPLET PO SCH (08:24)
[2021-01-01] MEDS: DOCUSATE SODIUM 100 MG CAPSULE PO SCH ×2 (08:24→20:39)
[2021-01-01] MEDS: CHOLECALCIFEROL 1,000 UNIT TABLET PO SCH (08:24)
[2021-01-01] MEDS: cloNIDine 0.1 MG TABLET PO SCH ×2 (08:24→20:39)
[2021-01-01] MEDS: FOLIC ACID 1 MG TABLET PO SCH (08:24)
[2021-01-01] MEDS: PRIMIDONE 50 MG TABLET PO SCH ×3 (08:24→20:39)
[2021-01-01] MEDS: TAMSULOSIN 0.4 MG CAPSULE PO SCH (08:24)
[2021-01-01] MEDS: ATORVASTATIN 20 MG TABLET PO SCH (08:25)
[2021-01-01] MEDS: OXcarbazepine 300 MG TABLET PO SCH ×2 (08:25→20:40)
[2021-01-01] MEDS: CETIRIZINE 10 MG TABLET PO SCH (08:25)
[2021-01-01] MEDS: CYANOCOBALAMIN 500 MCG TABLET PO SCH (08:25)
[2021-01-01] MEDS: FERROUS SULFATE 325 MG TABLET PO SCH (08:25)
[2021-01-01] MEDS: ACETAMINOPHEN 325 MG TABLET PO PRN (17:54)
[2021-01-01] MEDS: GABAPENTIN 300 MG CAPSULE PO SCH (20:39)
[2021-01-02] MEDS: ALBUTEROL/IPRATROPIUM 3 ML NEB RESP TX SCH ×4 (01:25→19:20)
[2021-01-02] MEDS: methylPREDNISolone SOD SUC 40 MG/1 ML VIAL IV SCH ×2 (03:51→15:46)
[2021-01-02 05:55] LABS: Basophils % 0.2 % (0.0-0.8); Eosinophils % 0.3 % (0.00-10.9); Hematocrit 37.2 VOL% (42.0-52.0); Hemoglobin 11.8 GM/DL (14.0-18.0); Immature Granulocytes Absolute 0.09 #; Lymphocytes # 0.8 10*3/uL (1.4-4.0); Lymphocytes % 8.3 % (21.2-54.2); Mean Corpuscular HGB Conc 31.7 GM/DL (32-36); Mean Corpuscular Volume 96.6 FL (87-102); Mean Platelet Volume 9.3 FL (9.6-12.0); Monocytes % 6.6 % (1.7-12.7); Neutrophils % 83.6 % (38.7-73.9); Platelet Count 206 T/CUMM (130-400); Red Blood Count 3.85 MC/CUMM (3.8-5.5); Red Cell Distribution Width 13.4 % (9.3-17.3); White Blood Count 9.2 T/CUMM (4-12)
[2021-01-02 06:26] LABS: Alanine Aminotransferase 26 U/L (16-61); Albumin 3.3 G/DL (3.4-5.0); Alkaline Phosphatase 74 U/L (45-117); Aspartate Amino Transferase 18 U/L (0-37); Bilirubin,Direct < 0.100 MG/DL (0.0-0.20); Bilirubin,Indirect 0.3 MG/DL (0.0-1.0); Bilirubin,Total < 0.39 MG/DL (0.20-1.00); Blood Urea Nitrogen 37 MG/DL (7-18); Calcium 8.6 MG/DL (8.5-10.1); Carbon Dioxide 28 MMOL/L (21-32); Estimated Glom Filtration Rate 71 ML/MIN; Glucose 110 MG/DL (74-106); Osmolality,Calculated 295.8 MOS/KG (273-304); Sodium 144 MMOL/L (136-145); Total Protein 6.5 G/DL (6.4-8.2)
[2021-01-02] MEDS: TAMSULOSIN 0.4 MG CAPSULE PO SCH ×2 (08:37→09:49)
[2021-01-02] MEDS: LACTOBACILLUS ACIDOPHILUS/BULGARICUS CAPLET PO SCH (09:48)
[2021-01-02] MEDS: CHOLECALCIFEROL 1,000 UNIT TABLET PO SCH (09:48)
[2021-01-02] MEDS: cloNIDine 0.1 MG TABLET PO SCH ×2 (09:48→21:20)
[2021-01-02] MEDS: CYANOCOBALAMIN 500 MCG TABLET PO SCH (09:48)
[2021-01-02] MEDS: FERROUS SULFATE 325 MG TABLET PO SCH (09:48)
[2021-01-02] MEDS: PRIMIDONE 50 MG TABLET PO SCH ×3 (09:48→21:20)
[2021-01-02] MEDS: PANTOPRAZOLE 40 MG TABLET PO SCH (09:49)
[2021-01-02] MEDS: ATORVASTATIN 20 MG TABLET PO SCH (09:49)
[2021-01-02] MEDS: busPIRone 5 MG TABLET PO SCH ×3 (09:49→21:20)
[2021-01-02] MEDS: DOCUSATE SODIUM 100 MG CAPSULE PO SCH ×2 (09:49→21:19)
[2021-01-02] MEDS: FOLIC ACID 1 MG TABLET PO SCH (09:49)
[2021-01-02] MEDS: SERTRALINE 50 MG TABLET PO SCH ×2 (09:49→21:20)
[2021-01-02] MEDS: OXcarbazepine 300 MG TABLET PO SCH ×2 (09:49→21:19)
[2021-01-02] MEDS: CETIRIZINE 10 MG TABLET PO SCH (09:49)
[2021-01-02] MEDS: ACETAMINOPHEN 325 MG TABLET PO PRN (10:04)
[2021-01-02] MEDS: GABAPENTIN 300 MG CAPSULE PO SCH (21:19)
[2021-01-03] MEDS: ALBUTEROL/IPRATROPIUM 3 ML NEB RESP TX SCH ×4 (00:10→18:35)
[2021-01-03] MEDS: methylPREDNISolone SOD SUC 40 MG/1 ML VIAL IV SCH ×2 (02:27→15:18)
[2021-01-03] MEDS: cloNIDine 0.1 MG TABLET PO SCH ×2 (09:10→21:22)
[2021-01-03] MEDS: busPIRone 5 MG TABLET PO SCH ×3 (09:11→21:22)
[2021-01-03] MEDS: SERTRALINE 50 MG TABLET PO SCH ×2 (09:11→21:22)
[2021-01-03] MEDS: CHOLECALCIFEROL 1,000 UNIT TABLET PO SCH (09:11)
[2021-01-03] MEDS: POLYETHYLENE GLYCOL POWDER 17 GM PACK PO SCH (09:11)
[2021-01-03] MEDS: OXcarbazepine 300 MG TABLET PO SCH ×2 (09:11→21:22)
[2021-01-03] MEDS: LACTOBACILLUS ACIDOPHILUS/BULGARICUS CAPLET PO SCH (09:11)
[2021-01-03] MEDS: CYANOCOBALAMIN 500 MCG TABLET PO SCH (09:11)
[2021-01-03] MEDS: CETIRIZINE 10 MG TABLET PO SCH (09:12)
[2021-01-03] MEDS: PANTOPRAZOLE 40 MG TABLET PO SCH (09:12)
[2021-01-03] MEDS: TAMSULOSIN 0.4 MG CAPSULE PO SCH (09:12)
[2021-01-03] MEDS: FERROUS SULFATE 325 MG TABLET PO SCH (09:12)
[2021-01-03] MEDS: ATORVASTATIN 20 MG TABLET PO SCH (09:12)
[2021-01-03] MEDS: FOLIC ACID 1 MG TABLET PO SCH (09:12)
[2021-01-03] MEDS: PRIMIDONE 50 MG TABLET PO SCH ×3 (09:12→21:22)
[2021-01-03] MEDS: DOCUSATE SODIUM 100 MG CAPSULE PO SCH ×2 (09:12→21:22)
[2021-01-03] MEDS: GABAPENTIN 300 MG CAPSULE PO SCH (21:22)
[2021-01-04] MEDS: ALBUTEROL/IPRATROPIUM 3 ML NEB RESP TX SCH ×2 (00:35→07:07)
[2021-01-04] MEDS: methylPREDNISolone SOD SUC 40 MG/1 ML VIAL IV SCH (03:47)
[2021-01-04] MEDS: ACETAMINOPHEN 325 MG TABLET PO PRN (06:25)
[2021-01-04 08:07] VITALS: BP 158/78
[2021-01-04] MEDS: PRIMIDONE 50 MG TABLET PO SCH (08:39)
[2021-01-04] MEDS: PANTOPRAZOLE 40 MG TABLET PO SCH (08:39)
[2021-01-04] MEDS: SERTRALINE 50 MG TABLET PO SCH (08:39)
[2021-01-04] MEDS: FERROUS SULFATE 325 MG TABLET PO SCH (08:39)
[2021-01-04] MEDS: busPIRone 5 MG TABLET PO SCH (08:39)
[2021-01-04] MEDS: OXcarbazepine 300 MG TABLET PO SCH (08:39)
[2021-01-04] MEDS: cloNIDine 0.1 MG TABLET PO SCH (08:39)
[2021-01-04] MEDS: POLYETHYLENE GLYCOL POWDER 17 GM PACK PO SCH (08:40)
[2021-01-04] MEDS: TAMSULOSIN 0.4 MG CAPSULE PO SCH (08:40)
[2021-01-04] MEDS: LACTOBACILLUS ACIDOPHILUS/BULGARICUS CAPLET PO SCH (08:40)
[2021-01-04] MEDS: FOLIC ACID 1 MG TABLET PO SCH (08:40)
[2021-01-04] MEDS: DOCUSATE SODIUM 100 MG CAPSULE PO SCH (08:40)
[2021-01-04] MEDS: CHOLECALCIFEROL 1,000 UNIT TABLET PO SCH (08:40)
[2021-01-04] MEDS: ATORVASTATIN 20 MG TABLET PO SCH (08:40)
[2021-01-04] MEDS: CETIRIZINE 10 MG TABLET PO SCH (08:40)
[2021-01-04] MEDS: CYANOCOBALAMIN 500 MCG TABLET PO SCH (08:41)
== END 2021-01-04 11:09 | disposition home health service (06) | DRG 191 ==
LOC: N.ED 14:43 → N.EDINP 14:43 → SUATTDRO 15:26 → N.4E 16:07 → N.ICU 12-30 04:43 → SUATTDRO 12-30 14:05 → N.TELES 01-02 17:32
PROVIDERS: ADMIT Family Medicine; ATTEND Family Medicine

== ENCOUNTER 2021-04-27 03:04 | Inpatient (IN) ==
[2021-04-27] MEDS ORDERED: ALBUTEROL NEB SOLN 5 MG/ML 20 ML/BOTTLE CONT NEB STA (03:15)
[2021-04-27] MEDS ORDERED: cefTRIAXone 1,000 MG in SODIUM CHLORIDE 0.9% 100 ML IV STA (03:16)
[2021-04-27] MEDS ORDERED: FUROSEMIDE 40 MG/4 ML VIAL IV STA (03:16)
[2021-04-27] MEDS ORDERED: IPRATROPIUM 500 MCG/2.5 ML NEB RESP TX STA (03:16)
[2021-04-27] MEDS ORDERED: ONDANSETRON 4 MG/2 ML VIAL IV STA ×2 (03:16→03:42)
[2021-04-27] MEDS ORDERED: methylPREDNISolone SOD SUC 125 MG/2 ML VIAL IV STA (03:16)
[2021-04-27] MEDS ORDERED: ACETAMINOPHEN 500 MG TABLET PO STA (03:17)
[2021-04-27] MEDS ORDERED: ACETAMINOPHEN 500 MG TABLET ONE (03:18)
[2021-04-27 03:26] LABS: Basophils # 0.1 10*3/uL (0.0-0.2); Basophils % 0.3 % (0.0-0.8); Eosinophils # 0.2 10*3/uL (0.0-0.87); Hematocrit 37.9 VOL% (42.0-52.0); Hemoglobin 11.3 GM/DL (14.0-18.0); Immature Granulocytes % 0.7 %; Immature Granulocytes Absolute 0.13 #; Lymphocytes % 5.1 % (21.2-54.2); Mean Corpuscular HGB Conc 29.8 GM/DL (32-36); Mean Corpuscular Volume 86.3 FL (87-102); Mean Platelet Volume 9.1 FL (9.6-12.0); Monocytes % 4.9 % (1.7-12.7); Platelet Count 300 T/CUMM (130-400); Red Blood Count 4.39 MC/CUMM (3.8-5.5); Red Cell Distribution Width 15.1 % (9.3-17.3); White Blood Count 18.5 T/CUMM (4-12)
[2021-04-27 03:42] LABS: PT Patient Result 10.7 SECS (10.5-12.0); Partial Thromboplastin Time 22.9 SECS (23.8-32.1)
[2021-04-27 03:44] LABS: Alanine Aminotransferase 24 U/L (16-61); Albumin 3.8 G/DL (3.4-5.0); Alkaline Phosphatase 106 U/L (45-117); Aspartate Amino Transferase 18 U/L (0-37); Bilirubin,Total < 0.39 MG/DL (0.20-1.00); Blood Urea Nitrogen 24 MG/DL (7-18); Calcium 8.8 MG/DL (8.5-10.1); Carbon Dioxide 29 MMOL/L (21-32); Estimated Glom Filtration Rate 45 ML/MIN; Glucose 215 MG/DL (74-106); Osmolality,Calculated 290.3 MOS/KG (273-304); Potassium 4.5 MMOL/L (3.5-5.1); Sodium 141 MMOL/L (136-145); Total Protein 7.6 G/DL (6.4-8.2)
[2021-04-27] MEDS ORDERED: SODIUM CHLORIDE 0.9% 1,000 ML IV STA (03:48)
[2021-04-27] MEDS ORDERED: PIPERACILLIN/TAZOBACTAM 3,375 MG in SODIUM CHLORIDE 0.9% 100 ML IV STA (03:49)
[2021-04-27] MEDS ORDERED: DIPHENOXYLATE/ATROPINE 2.5-0.025 MG TABLET PO PRN (05:09)
[2021-04-27] MEDS ORDERED: cefTRIAXone 1,000 MG in SODIUM CHLORIDE 0.9% 100 ML IV SCH (05:09)
[2021-04-27] MEDS ORDERED: ONDANSETRON 4 MG/2 ML VIAL IV PRN (05:09)
[2021-04-27] MEDS: SODIUM CHLORIDE 0.9% 1,000 ML IV SCH ×3 (06:19→21:20)
[2021-04-27] MEDS: ALBUTEROL/IPRATROPIUM 3 ML NEB RESP TX SCH ×4 (07:30→19:40)
[2021-04-27 07:49] LABS: ABG Base Excess 1.2 MMOL/L (-2.5-2.5); ABG Oxygen Saturation 93.3 % (95-100); ABG PCO2 42.3 MM HG (35-48); ABG PH 7.407 (7.35-7.45); ABG PO2 66.3 MM HG (80-95); ABG TCO2 27.3 MMOL/L (23-27); Allen Test Positive
[2021-04-27] MEDS: CHOLECALCIFEROL 1,000 UNIT TABLET PO SCH (08:54)
[2021-04-27] MEDS: TAMSULOSIN 0.4 MG CAPSULE PO SCH (08:54)
[2021-04-27] MEDS: SERTRALINE 50 MG TABLET PO SCH ×2 (08:55→20:45)
[2021-04-27] MEDS: OXcarbazepine 300 MG TABLET PO SCH ×2 (08:55→20:46)
[2021-04-27] MEDS: ATORVASTATIN 20 MG TABLET PO SCH (08:55)
[2021-04-27] MEDS: cloNIDine 0.1 MG TABLET PO SCH ×2 (08:55→20:46)
[2021-04-27] MEDS: FOLIC ACID 1 MG TABLET PO SCH (08:55)
[2021-04-27] MEDS: BACILLUS COAGULANS CAPLET PO SCH (08:56)
[2021-04-27] MEDS: busPIRone 5 MG TABLET PO SCH ×3 (08:56→20:45)
[2021-04-27] MEDS: FERROUS SULFATE 325 MG TABLET PO SCH (08:57)
[2021-04-27] MEDS: CLOPIDOGREL 75 MG TABLET PO SCH (08:58)
[2021-04-27] MEDS: DOCUSATE SODIUM 100 MG CAPSULE PO SCH ×2 (08:58→20:45)
[2021-04-27] MEDS: ASPIRIN CHEW 81 MG TABLET PO SCH (08:58)
[2021-04-27] MEDS: PRIMIDONE 50 MG TABLET PO SCH ×3 (08:58→20:46)
[2021-04-27] MEDS: PANTOPRAZOLE 40 MG TABLET PO SCH (08:58)
[2021-04-27] MEDS: CYANOCOBALAMIN 500 MCG TABLET PO SCH (08:58)
[2021-04-27] MEDS ORDERED: PANTOPRAZOLE 40 MG VIAL IV SCH (09:00)
[2021-04-27] MEDS ORDERED: predniSONE 20 MG TABLET PO SCH (09:00)
[2021-04-27] MEDS: SELENIUM 200 MCG TABLET PO SCH (09:57)
[2021-04-27] MEDS: POLYETHYLENE GLYCOL POWDER 17 GM PACK PO SCH (09:57)
[2021-04-27] MEDS: CETIRIZINE 10 MG TABLET PO SCH (13:55)
[2021-04-27] MEDS: methylPREDNISolone SOD SUC 40 MG/1 ML VIAL IV SCH ×2 (13:55→20:47)
[2021-04-27] MEDS: PIPERACILLIN/TAZOBACTAM 3,375 MG in SODIUM CHLORIDE 0.9% 100 ML IV SCH ×2 (13:55→20:47)
[2021-04-27] MEDS: ACETAMINOPHEN 325 MG TABLET PO PRN (18:01)
[2021-04-27] MEDS: GABAPENTIN 300 MG CAPSULE PO SCH (20:45)
[2021-04-27 22:55] LABS: Bilirubin,Urine Negative (Negative); Blood, Urine Large mg/dL (Negative); Glucose,Urine (UA) Negative (Negative); Ketones,Urine Negative (Negative); Nitrite,Urine Negative (Negative); Protein,Urine 30 MG/DL; RBC,Urine 775 /HPF (0-4); Squamous Epithelial Cell,Urine Occasional /HPF (0-10); Urine Appearance CLOUDY (Clear); Urine Color Yellow (Yellow); Urine Specific Gravity 1.019 (1.001-1.035); Urine Urobilinogen < 2.0 EU/DL (0.2-1.0)
[2021-04-28] MEDS: ALBUTEROL/IPRATROPIUM 3 ML NEB RESP TX SCH ×7 (00:05→23:25)
[2021-04-28] MEDS: methylPREDNISolone SOD SUC 40 MG/1 ML VIAL IV SCH ×3 (04:30→20:24)
[2021-04-28] MEDS: PIPERACILLIN/TAZOBACTAM 3,375 MG in SODIUM CHLORIDE 0.9% 100 ML IV SCH ×3 (04:32→20:24)
[2021-04-28] MEDS: SODIUM CHLORIDE 0.9% 1,000 ML IV SCH ×2 (04:39→20:22)
[2021-04-28 05:57] LABS: Basophils % 0.1 % (0.0-0.8); Hematocrit 30.5 VOL% (42.0-52.0); Immature Granulocytes % 0.6 %; Immature Granulocytes Absolute 0.09 #; Lymphocytes # 0.2 10*3/uL (1.4-4.0); Lymphocytes % 1.7 % (21.2-54.2); Mean Corpuscular HGB Conc 29.8 GM/DL (32-36); Mean Corpuscular Volume 86.9 FL (87-102); Mean Platelet Volume 9.5 FL (9.6-12.0); Monocytes % 3.5 % (1.7-12.7); Neutrophils % 94.1 % (38.7-73.9); Platelet Count 215 T/CUMM (130-400); Red Blood Count 3.51 MC/CUMM (3.8-5.5); Red Cell Distribution Width 15.4 % (9.3-17.3); White Blood Count 14.1 T/CUMM (4-12)
[2021-04-28 05:58] LABS: Hemoglobin 9.1 GM/DL (14.0-18.0)
[2021-04-28 06:09] LABS: Bilirubin,Total 0.6 MG/DL (0.20-1.00); Calcium 8.3 MG/DL (8.5-10.1); Hypochromasia 1+; Lymphocytes 1 % (20-55); Microcytosis 1+; Osmolality,Calculated 288.3 MOS/KG (273-304); Ovalocytes Slight; Platelet Estimate Adequate; Potassium 4.2 MMOL/L (3.5-5.1); Segmented Neutrophils 98 % (50-85); Total Cells Counted 100; Total Protein 6.7 G/DL (6.4-8.2)
[2021-04-28] MEDS: ATORVASTATIN 20 MG TABLET PO SCH (09:44)
[2021-04-28] MEDS: CLOPIDOGREL 75 MG TABLET PO SCH (09:45)
[2021-04-28] MEDS: BACILLUS COAGULANS CAPLET PO SCH (09:45)
[2021-04-28] MEDS: PANTOPRAZOLE 40 MG TABLET PO SCH (09:45)
[2021-04-28] MEDS: CHOLECALCIFEROL 1,000 UNIT TABLET PO SCH (09:45)
[2021-04-28] MEDS: PRIMIDONE 50 MG TABLET PO SCH ×3 (09:45→20:23)
[2021-04-28] MEDS: DOCUSATE SODIUM 100 MG CAPSULE PO SCH ×2 (09:45→20:23)
[2021-04-28] MEDS: CETIRIZINE 10 MG TABLET PO SCH (09:46)
[2021-04-28] MEDS: ASPIRIN CHEW 81 MG TABLET PO SCH (09:46)
[2021-04-28] MEDS: FOLIC ACID 1 MG TABLET PO SCH (09:46)
[2021-04-28] MEDS: CYANOCOBALAMIN 500 MCG TABLET PO SCH (09:46)
[2021-04-28] MEDS: FERROUS SULFATE 325 MG TABLET PO SCH (09:46)
[2021-04-28] MEDS: cloNIDine 0.1 MG TABLET PO SCH ×2 (09:46→20:23)
[2021-04-28] MEDS: SERTRALINE 50 MG TABLET PO SCH ×2 (09:46→20:23)
[2021-04-28] MEDS: OXcarbazepine 300 MG TABLET PO SCH ×2 (09:46→20:23)
[2021-04-28] MEDS: TAMSULOSIN 0.4 MG CAPSULE PO SCH (09:46)
[2021-04-28] MEDS: busPIRone 5 MG TABLET PO SCH ×3 (09:46→20:23)
[2021-04-28] MEDS: POLYETHYLENE GLYCOL POWDER 17 GM PACK PO SCH (09:47)
[2021-04-28] MEDS: SELENIUM 200 MCG TABLET PO SCH (11:29)
[2021-04-28] MEDS: GABAPENTIN 300 MG CAPSULE PO SCH (20:23)
[2021-04-29] MEDS: ALBUTEROL/IPRATROPIUM 3 ML NEB RESP TX SCH ×5 (03:05→20:25)
[2021-04-29] MEDS: methylPREDNISolone SOD SUC 40 MG/1 ML VIAL IV SCH ×3 (04:18→20:29)
[2021-04-29] MEDS: PIPERACILLIN/TAZOBACTAM 3,375 MG in SODIUM CHLORIDE 0.9% 100 ML IV SCH ×3 (04:22→22:09)
[2021-04-29 08:05] LABS: Bilirubin,Urine Negative (Negative); Blood, Urine Large mg/dL (Negative); Glucose,Urine (UA) 50 mg/dL (Negative); Hyaline Casts,Urine 2 /LPF (0-3); Ketones,Urine Negative (Negative); Mucus,Urine Occasional /LPF (Occasional); Nitrite,Urine Negative (Negative); Protein,Urine 30 MG/DL; RBC,Urine 605 /HPF (0-4); Squamous Epithelial Cell,Urine Occasional /HPF (0-10); Urine Appearance CLEAR (Clear); Urine Color Yellow (Yellow); Urine Specific Gravity 1.014 (1.001-1.035); Urine Urobilinogen < 2.0 EU/DL (0.2-1.0)
[2021-04-29] MEDS: CHOLECALCIFEROL 1,000 UNIT TABLET PO SCH (10:15)
[2021-04-29] MEDS: ASPIRIN CHEW 81 MG TABLET PO SCH (10:16)
[2021-04-29] MEDS: BACILLUS COAGULANS CAPLET PO SCH (10:16)
[2021-04-29] MEDS: ATORVASTATIN 20 MG TABLET PO SCH (10:16)
[2021-04-29] MEDS: CETIRIZINE 10 MG TABLET PO SCH (10:16)
[2021-04-29] MEDS: TAMSULOSIN 0.4 MG CAPSULE PO SCH (10:16)
[2021-04-29] MEDS: busPIRone 5 MG TABLET PO SCH ×3 (10:16→20:28)
[2021-04-29] MEDS: cloNIDine 0.1 MG TABLET PO SCH ×2 (10:16→20:28)
[2021-04-29] MEDS: FERROUS SULFATE 325 MG TABLET PO SCH (10:16)
[2021-04-29] MEDS: FOLIC ACID 1 MG TABLET PO SCH (10:16)
[2021-04-29] MEDS: CLOPIDOGREL 75 MG TABLET PO SCH (10:16)
[2021-04-29] MEDS: SERTRALINE 50 MG TABLET PO SCH ×2 (10:16→20:28)
[2021-04-29] MEDS: OXcarbazepine 300 MG TABLET PO SCH ×2 (10:16→20:28)
[2021-04-29] MEDS: POLYETHYLENE GLYCOL POWDER 17 GM PACK PO SCH (10:17)
[2021-04-29] MEDS: PANTOPRAZOLE 40 MG TABLET PO SCH (10:17)
[2021-04-29] MEDS: PRIMIDONE 50 MG TABLET PO SCH ×3 (10:17→20:28)
[2021-04-29] MEDS: DOCUSATE SODIUM 100 MG CAPSULE PO SCH ×2 (10:17→20:28)
[2021-04-29] MEDS: CYANOCOBALAMIN 500 MCG TABLET PO SCH (10:17)
[2021-04-29] MEDS: SELENIUM 200MCG PO SCH (10:18)
[2021-04-29] MEDS: SODIUM CHLORIDE 0.9% 1,000 ML IV SCH (11:16)
[2021-04-29] MEDS: ACETAMINOPHEN 325 MG TABLET PO PRN (15:49)
[2021-04-29] MEDS: SIMETHICONE CHEW 80 MG TABLET PO PRN (16:15)
[2021-04-29] MEDS: GABAPENTIN 300 MG CAPSULE PO SCH (20:28)
[2021-04-30] MEDS: ALBUTEROL/IPRATROPIUM 3 ML NEB RESP TX SCH ×7 (01:05→23:20)
[2021-04-30] MEDS: methylPREDNISolone SOD SUC 40 MG/1 ML VIAL IV SCH ×3 (05:17→20:31)
[2021-04-30] MEDS: PIPERACILLIN/TAZOBACTAM 3,375 MG in SODIUM CHLORIDE 0.9% 100 ML IV SCH ×3 (05:17→21:26)
[2021-04-30] MEDS: SODIUM CHLORIDE 0.9% 1,000 ML IV SCH (05:22)
[2021-04-30] MEDS: cloNIDine 0.1 MG TABLET PO SCH ×2 (09:26→20:28)
[2021-04-30] MEDS: OXcarbazepine 300 MG TABLET PO SCH ×2 (09:26→20:29)
[2021-04-30] MEDS: busPIRone 5 MG TABLET PO SCH ×3 (09:26→20:29)
[2021-04-30] MEDS: CYANOCOBALAMIN 500 MCG TABLET PO SCH (09:26)
[2021-04-30] MEDS: CHOLECALCIFEROL 1,000 UNIT TABLET PO SCH (09:27)
[2021-04-30] MEDS: CLOPIDOGREL 75 MG TABLET PO SCH (09:27)
[2021-04-30] MEDS: BACILLUS COAGULANS CAPLET PO SCH (09:27)
[2021-04-30] MEDS: ASPIRIN CHEW 81 MG TABLET PO SCH (09:27)
[2021-04-30] MEDS: DOCUSATE SODIUM 100 MG CAPSULE PO SCH ×2 (09:27→20:28)
[2021-04-30] MEDS: FERROUS SULFATE 325 MG TABLET PO SCH ×2 (09:28→09:29)
[2021-04-30] MEDS: ATORVASTATIN 20 MG TABLET PO SCH (09:28)
[2021-04-30] MEDS: CETIRIZINE 10 MG TABLET PO SCH (09:28)
[2021-04-30] MEDS: SERTRALINE 50 MG TABLET PO SCH ×2 (09:28→20:29)
[2021-04-30] MEDS: TAMSULOSIN 0.4 MG CAPSULE PO SCH (09:28)
[2021-04-30] MEDS: PRIMIDONE 50 MG TABLET PO SCH ×3 (09:29→20:29)
[2021-04-30] MEDS: PANTOPRAZOLE 40 MG TABLET PO SCH (09:29)
[2021-04-30] MEDS: POLYETHYLENE GLYCOL POWDER 17 GM PACK PO SCH (09:30)
[2021-04-30] MEDS: FOLIC ACID 1 MG TABLET PO SCH (09:38)
[2021-04-30] MEDS: SELENIUM 200MCG PO SCH (09:38)
[2021-04-30] MEDS: GABAPENTIN 300 MG CAPSULE PO SCH (20:29)
[2021-05-01] MEDS ORDERED: hydrALAZINE 20 MG/1 ML VIAL IV PRN (00:51)
[2021-05-01] MEDS: SODIUM CHLORIDE 0.9% 1,000 ML IV SCH ×2 (03:26→20:24)
[2021-05-01 04:26] LABS: Basophils % 0.2 % (0.0-0.8); Eosinophils % 0.1 % (0.00-10.9); Hematocrit 35.6 VOL% (42.0-52.0); Hemoglobin 10.7 GM/DL (14.0-18.0); Immature Granulocytes % 3.9 %; Immature Granulocytes Absolute 0.34 #; Lymphocytes # 0.4 10*3/uL (1.4-4.0); Lymphocytes % 4.4 % (21.2-54.2); Mean Corpuscular HGB Conc 30.1 GM/DL (32-36); Mean Corpuscular Volume 85.6 FL (87-102); Mean Platelet Volume 9.7 FL (9.6-12.0); Monocytes % 5.3 % (1.7-12.7); Neutrophils % 86.1 % (38.7-73.9); Platelet Count 239 T/CUMM (130-400); Red Blood Count 4.16 MC/CUMM (3.8-5.5); Red Cell Distribution Width 15.1 % (9.3-17.3); White Blood Count 8.7 T/CUMM (4-12)
[2021-05-01] MEDS: ALBUTEROL/IPRATROPIUM 3 ML NEB RESP TX SCH ×5 (04:43→19:34)
[2021-05-01 04:48] LABS: Calcium 8.7 MG/DL (8.5-10.1); Osmolality,Calculated 280.7 MOS/KG (273-304); Potassium 3.8 MMOL/L (3.5-5.1)
[2021-05-01 04:51] LABS: Hypochromasia Slight; Lymphocytes 6 % (20-55); Microcytosis Slight; Platelet Estimate Adequate; Segmented Neutrophils 89 % (50-85); Total Cells Counted 100
[2021-05-01] MEDS: PIPERACILLIN/TAZOBACTAM 3,375 MG in SODIUM CHLORIDE 0.9% 100 ML IV SCH ×3 (05:23→21:12)
[2021-05-01] MEDS: methylPREDNISolone SOD SUC 40 MG/1 ML VIAL IV SCH ×3 (05:23→20:23)
[2021-05-01] MEDS: SIMETHICONE CHEW 80 MG TABLET PO PRN ×2 (09:59→14:09)
[2021-05-01] MEDS: TAMSULOSIN 0.4 MG CAPSULE PO SCH (10:00)
[2021-05-01] MEDS: cloNIDine 0.1 MG TABLET PO SCH ×2 (10:00→20:22)
[2021-05-01] MEDS: PANTOPRAZOLE 40 MG TABLET PO SCH (10:00)
[2021-05-01] MEDS: FOLIC ACID 1 MG TABLET PO SCH (10:00)
[2021-05-01] MEDS: PRIMIDONE 50 MG TABLET PO SCH ×3 (10:00→20:22)
[2021-05-01] MEDS: FERROUS SULFATE 325 MG TABLET PO SCH (10:00)
[2021-05-01] MEDS: CYANOCOBALAMIN 500 MCG TABLET PO SCH (10:00)
[2021-05-01] MEDS: POLYETHYLENE GLYCOL POWDER 17 GM PACK PO SCH ×2 (10:00→10:05)
[2021-05-01] MEDS: SERTRALINE 50 MG TABLET PO SCH ×2 (10:00→20:22)
[2021-05-01] MEDS: CETIRIZINE 10 MG TABLET PO SCH (10:01)
[2021-05-01] MEDS: CLOPIDOGREL 75 MG TABLET PO SCH (10:01)
[2021-05-01] MEDS: DOCUSATE SODIUM 100 MG CAPSULE PO SCH ×2 (10:01→20:22)
[2021-05-01] MEDS: ATORVASTATIN 20 MG TABLET PO SCH (10:01)
[2021-05-01] MEDS: ASPIRIN CHEW 81 MG TABLET PO SCH (10:01)
[2021-05-01] MEDS: BACILLUS COAGULANS CAPLET PO SCH (10:01)
[2021-05-01] MEDS: busPIRone 5 MG TABLET PO SCH ×3 (10:02→20:22)
[2021-05-01] MEDS: SELENIUM 200MCG PO SCH (10:02)
[2021-05-01] MEDS: OXcarbazepine 300 MG TABLET PO SCH ×2 (10:02→20:22)
[2021-05-01] MEDS: CHOLECALCIFEROL 1,000 UNIT TABLET PO SCH (10:04)
[2021-05-01] MEDS: ACETYLCYSTEINE 20% 800 MG/4 ML VIAL RESP TX SCH (14:35)
[2021-05-01] MEDS: GABAPENTIN 300 MG CAPSULE PO SCH (20:22)
[2021-05-02] MEDS: ACETYLCYSTEINE 20% 800 MG/4 ML VIAL RESP TX SCH ×4 (00:06→23:50)
[2021-05-02] MEDS: ALBUTEROL/IPRATROPIUM 3 ML NEB RESP TX SCH ×7 (00:06→23:49)
[2021-05-02] MEDS: methylPREDNISolone SOD SUC 40 MG/1 ML VIAL IV SCH ×3 (05:28→20:51)
[2021-05-02] MEDS: PIPERACILLIN/TAZOBACTAM 3,375 MG in SODIUM CHLORIDE 0.9% 100 ML IV SCH ×3 (05:30→22:36)
[2021-05-02] MEDS: busPIRone 5 MG TABLET PO SCH ×3 (10:18→20:49)
[2021-05-02] MEDS: FOLIC ACID 1 MG TABLET PO SCH (10:18)
[2021-05-02] MEDS: CYANOCOBALAMIN 500 MCG TABLET PO SCH (10:18)
[2021-05-02] MEDS: CETIRIZINE 10 MG TABLET PO SCH (10:18)
[2021-05-02] MEDS: DOCUSATE SODIUM 100 MG CAPSULE PO SCH ×2 (10:18→20:49)
[2021-05-02] MEDS: TAMSULOSIN 0.4 MG CAPSULE PO SCH (10:18)
[2021-05-02] MEDS: ATORVASTATIN 20 MG TABLET PO SCH (10:19)
[2021-05-02] MEDS: OXcarbazepine 300 MG TABLET PO SCH ×2 (10:19→20:49)
[2021-05-02] MEDS: PRIMIDONE 50 MG TABLET PO SCH ×3 (10:19→20:49)
[2021-05-02] MEDS: FERROUS SULFATE 325 MG TABLET PO SCH (10:19)
[2021-05-02] MEDS: CHOLECALCIFEROL 1,000 UNIT TABLET PO SCH (10:19)
[2021-05-02] MEDS: CLOPIDOGREL 75 MG TABLET PO SCH (10:19)
[2021-05-02] MEDS: ASPIRIN CHEW 81 MG TABLET PO SCH (10:19)
[2021-05-02] MEDS: cloNIDine 0.1 MG TABLET PO SCH ×3 (10:19→20:49)
[2021-05-02] MEDS: POLYETHYLENE GLYCOL POWDER 17 GM PACK PO SCH (10:20)
[2021-05-02] MEDS: BACILLUS COAGULANS CAPLET PO SCH (10:20)
[2021-05-02] MEDS: SERTRALINE 50 MG TABLET PO SCH ×2 (10:20→20:49)
[2021-05-02] MEDS: PANTOPRAZOLE 40 MG TABLET PO SCH (10:20)
[2021-05-02] MEDS: SELENIUM 200MCG PO SCH (10:21)
[2021-05-02] MEDS: SODIUM CHLORIDE 0.9% 1,000 ML IV SCH (16:15)
[2021-05-02] MEDS: SIMETHICONE CHEW 80 MG TABLET PO PRN (18:18)
[2021-05-02] MEDS: GABAPENTIN 300 MG CAPSULE PO SCH (20:50)
[2021-05-03] MEDS: ALBUTEROL/IPRATROPIUM 3 ML NEB RESP TX SCH ×2 (03:27→07:05)
[2021-05-03] MEDS: methylPREDNISolone SOD SUC 40 MG/1 ML VIAL IV SCH (06:10)
[2021-05-03] MEDS: PIPERACILLIN/TAZOBACTAM 3,375 MG in SODIUM CHLORIDE 0.9% 100 ML IV SCH (06:12)
[2021-05-03 08:12] VITALS: BP 168/92
[2021-05-03] MEDS: ACETYLCYSTEINE 20% 800 MG/4 ML VIAL RESP TX SCH (08:16)
[2021-05-03] MEDS: busPIRone 5 MG TABLET PO SCH (09:32)
[2021-05-03] MEDS: BACILLUS COAGULANS CAPLET PO SCH (09:32)
[2021-05-03] MEDS: OXcarbazepine 300 MG TABLET PO SCH (09:32)
[2021-05-03] MEDS: CETIRIZINE 10 MG TABLET PO SCH (09:33)
[2021-05-03] MEDS: ASPIRIN CHEW 81 MG TABLET PO SCH (09:33)
[2021-05-03] MEDS: CHOLECALCIFEROL 1,000 UNIT TABLET PO SCH (09:33)
[2021-05-03] MEDS: ATORVASTATIN 20 MG TABLET PO SCH (09:33)
[2021-05-03] MEDS: CYANOCOBALAMIN 500 MCG TABLET PO SCH (09:33)
[2021-05-03] MEDS: FERROUS SULFATE 325 MG TABLET PO SCH (09:33)
[2021-05-03] MEDS: PANTOPRAZOLE 40 MG TABLET PO SCH (09:33)
[2021-05-03] MEDS: TAMSULOSIN 0.4 MG CAPSULE PO SCH (09:33)
[2021-05-03] MEDS: PRIMIDONE 50 MG TABLET PO SCH (09:33)
[2021-05-03] MEDS: DOCUSATE SODIUM 100 MG CAPSULE PO SCH (09:34)
[2021-05-03] MEDS: SERTRALINE 50 MG TABLET PO SCH (09:34)
[2021-05-03] MEDS: cloNIDine 0.1 MG TABLET PO SCH (09:34)
[2021-05-03] MEDS: CLOPIDOGREL 75 MG TABLET PO SCH (09:34)
[2021-05-03] MEDS: FOLIC ACID 1 MG TABLET PO SCH (10:08)
[2021-05-03] MEDS: SELENIUM 200MCG PO SCH (10:09)
[2021-05-03] MEDS: SIMETHICONE CHEW 80 MG TABLET PO PRN (10:09)
[2021-05-03] MEDS: POLYETHYLENE GLYCOL POWDER 17 GM PACK PO SCH (10:09)
== END 2021-05-03 11:52 | disposition home or self-care (01) | DRG 190 ==
LOC: EDUNIT# → N.ED 03:04 → N.EDINP 03:54 → N.TELES 05:28
PROVIDERS: ADMIT Family Medicine; ATTEND Family Medicine

== ENCOUNTER 2021-05-04 13:31 | Inpatient (IN) ==
[2021-05-04] MEDS ORDERED: ONDANSETRON 4 MG/2 ML VIAL IV PRN (14:56)
[2021-05-04 15:02] LABS: Basophils % 0.2 % (0.0-0.8); Eosinophils # 0.4 10*3/uL (0.0-0.87); Eosinophils % 3.2 % (0.00-10.9); Hematocrit 36.2 VOL% (42.0-52.0); Hemoglobin 10.7 GM/DL (14.0-18.0); Immature Granulocytes % 2.8 %; Immature Granulocytes Absolute 0.32 #; Lymphocytes # 0.6 10*3/uL (1.4-4.0); Lymphocytes % 5.3 % (21.2-54.2); Mean Corpuscular HGB Conc 29.6 GM/DL (32-36); Monocytes % 5.6 % (1.7-12.7); Neutrophils % 82.9 % (38.7-73.9); Platelet Count 287 T/CUMM (130-400); Red Blood Count 4.21 MC/CUMM (3.8-5.5); Red Cell Distribution Width 15.5 % (9.3-17.3); White Blood Count 11.4 T/CUMM (4-12)
[2021-05-04 15:19] LABS: Albumin 3.2 G/DL (3.4-5.0); Bilirubin,Total 0.4 MG/DL (0.20-1.00); Calcium 8.9 MG/DL (8.5-10.1); Osmolality,Calculated 293.1 MOS/KG (273-304); Potassium 3.7 MMOL/L (3.5-5.1); Total Protein 6.7 G/DL (6.4-8.2)
[2021-05-04] MEDS ORDERED: DIPHENOXYLATE/ATROPINE 2.5-0.025 MG TABLET PO PRN (16:46)
[2021-05-04 17:00] LABS: Folate 22.11 NG/ML (5.38-24.0)
[2021-05-04] MEDS ORDERED: ALBUTEROL INHALER 18 GM INH PRN (18:56)
[2021-05-04] MEDS: ALBUTEROL/IPRATROPIUM 3 ML NEB RESP TX SCH ×2 (20:10→23:31)
[2021-05-04] MEDS: busPIRone 5 MG TABLET PO SCH (21:23)
[2021-05-04] MEDS: AMOXICILLIN/CLAV 875 MG TABLET PO SCH (21:23)
[2021-05-04] MEDS: cloNIDine 0.1 MG TABLET PO SCH (21:23)
[2021-05-04] MEDS: OXcarbazepine 300 MG TABLET PO SCH (21:23)
[2021-05-04] MEDS: GABAPENTIN 300 MG CAPSULE PO SCH (21:23)
[2021-05-04] MEDS: DOCUSATE SODIUM 100 MG CAPSULE PO SCH (21:23)
[2021-05-04] MEDS: PRIMIDONE 50 MG TABLET PO SCH (21:23)
[2021-05-04] MEDS: SERTRALINE 50 MG TABLET PO SCH (21:35)
[2021-05-05] MEDS: ALBUTEROL/IPRATROPIUM 3 ML NEB RESP TX SCH ×5 (03:52→20:01)
[2021-05-05] MEDS: ATORVASTATIN 20 MG TABLET PO SCH (08:27)
[2021-05-05] MEDS: PRIMIDONE 50 MG TABLET PO SCH ×3 (08:28→22:10)
[2021-05-05] MEDS: AMOXICILLIN/CLAV 875 MG TABLET PO SCH ×2 (08:28→22:10)
[2021-05-05] MEDS: FOLIC ACID 1 MG TABLET PO SCH (08:28)
[2021-05-05] MEDS: CETIRIZINE 10 MG TABLET PO SCH (08:28)
[2021-05-05] MEDS: ASPIRIN CHEW 81 MG TABLET PO SCH (08:28)
[2021-05-05] MEDS: CLOPIDOGREL 75 MG TABLET PO SCH (08:28)
[2021-05-05] MEDS: POLYETHYLENE GLYCOL POWDER 17 GM PACK PO SCH (08:28)
[2021-05-05] MEDS: FERROUS SULFATE 325 MG TABLET PO SCH (08:28)
[2021-05-05] MEDS: DOCUSATE SODIUM 100 MG CAPSULE PO SCH ×2 (08:28→22:11)
[2021-05-05] MEDS: SERTRALINE 50 MG TABLET PO SCH ×2 (08:28→22:10)
[2021-05-05] MEDS: CHOLECALCIFEROL 1,000 UNIT TABLET PO SCH (08:28)
[2021-05-05] MEDS: busPIRone 5 MG TABLET PO SCH ×3 (08:28→22:11)
[2021-05-05] MEDS: OXcarbazepine 300 MG TABLET PO SCH ×2 (08:28→22:10)
[2021-05-05] MEDS: cloNIDine 0.1 MG TABLET PO SCH ×3 (08:28→22:10)
[2021-05-05] MEDS: PANTOPRAZOLE 40 MG TABLET PO SCH (08:28)
[2021-05-05] MEDS ORDERED: LANSOPRAZOLE 15 MG PO SCH (09:00)
[2021-05-05] MEDS: TAMSULOSIN 0.4 MG CAPSULE PO SCH (09:40)
[2021-05-05] MEDS: CYANOCOBALAMIN 2500 MCG PO SCH (10:00)
[2021-05-05] MEDS: SELENIUM 200 MCG TABLET PO SCH (10:00)
[2021-05-05] MEDS: [UNRECOGNIZED DRUG - OTHER] PO SCH (10:00)
[2021-05-05] MEDS: LACTOBACILLUS ACIDOPHILUS PO SCH (10:00)
[2021-05-05] MEDS: GABAPENTIN 300 MG CAPSULE PO SCH (22:10)
[2021-05-06] MEDS: ALBUTEROL/IPRATROPIUM 3 ML NEB RESP TX SCH ×6 (01:02→19:43)
[2021-05-06] MEDS: busPIRone 5 MG TABLET PO SCH ×3 (08:48→21:14)
[2021-05-06] MEDS: DOCUSATE SODIUM 100 MG CAPSULE PO SCH ×2 (08:48→21:15)
[2021-05-06] MEDS: CHOLECALCIFEROL 1,000 UNIT TABLET PO SCH (08:48)
[2021-05-06] MEDS: CLOPIDOGREL 75 MG TABLET PO SCH (08:48)
[2021-05-06] MEDS: FOLIC ACID 1 MG TABLET PO SCH (08:48)
[2021-05-06] MEDS: OXcarbazepine 300 MG TABLET PO SCH ×2 (08:48→21:15)
[2021-05-06] MEDS: POLYETHYLENE GLYCOL POWDER 17 GM PACK PO SCH (08:48)
[2021-05-06] MEDS: ASPIRIN CHEW 81 MG TABLET PO SCH (08:48)
[2021-05-06] MEDS: FERROUS SULFATE 325 MG TABLET PO SCH (08:48)
[2021-05-06] MEDS: SERTRALINE 50 MG TABLET PO SCH ×2 (08:49→21:15)
[2021-05-06] MEDS: PANTOPRAZOLE 40 MG TABLET PO SCH (08:49)
[2021-05-06] MEDS: PRIMIDONE 50 MG TABLET PO SCH ×3 (08:49→21:15)
[2021-05-06] MEDS: AMOXICILLIN/CLAV 875 MG TABLET PO SCH ×2 (08:49→21:14)
[2021-05-06] MEDS: ATORVASTATIN 20 MG TABLET PO SCH (08:49)
[2021-05-06] MEDS: predniSONE 20 MG TABLET PO SCH (08:49)
[2021-05-06] MEDS: TAMSULOSIN 0.4 MG CAPSULE PO SCH (08:49)
[2021-05-06] MEDS: cloNIDine 0.1 MG TABLET PO SCH ×3 (08:56→21:14)
[2021-05-06] MEDS: CETIRIZINE 10 MG TABLET PO SCH (08:56)
[2021-05-06] MEDS: SELENIUM 200 MCG TABLET PO SCH (12:31)
[2021-05-06] MEDS: LACTOBACILLUS ACIDOPHILUS PO SCH (12:31)
[2021-05-06] MEDS: [UNRECOGNIZED DRUG - OTHER] PO SCH (12:31)
[2021-05-06] MEDS: CYANOCOBALAMIN 2500 MCG PO SCH (12:31)
[2021-05-06] MEDS: GABAPENTIN 300 MG CAPSULE PO SCH (21:14)
[2021-05-07] MEDS: ALBUTEROL/IPRATROPIUM 3 ML NEB RESP TX SCH ×7 (00:47→23:58)
[2021-05-07] MEDS: POLYETHYLENE GLYCOL POWDER 17 GM PACK PO SCH (08:08)
[2021-05-07] MEDS: FERROUS SULFATE 325 MG TABLET PO SCH (08:09)
[2021-05-07] MEDS: CETIRIZINE 10 MG TABLET PO SCH (08:09)
[2021-05-07] MEDS: SERTRALINE 50 MG TABLET PO SCH ×2 (08:09→20:53)
[2021-05-07] MEDS: TAMSULOSIN 0.4 MG CAPSULE PO SCH (08:09)
[2021-05-07] MEDS: PANTOPRAZOLE 40 MG TABLET PO SCH (08:09)
[2021-05-07] MEDS: CHOLECALCIFEROL 1,000 UNIT TABLET PO SCH (08:09)
[2021-05-07] MEDS: ATORVASTATIN 20 MG TABLET PO SCH (08:09)
[2021-05-07] MEDS: cloNIDine 0.1 MG TABLET PO SCH ×3 (08:09→20:52)
[2021-05-07] MEDS: ASPIRIN CHEW 81 MG TABLET PO SCH (08:10)
[2021-05-07] MEDS: CLOPIDOGREL 75 MG TABLET PO SCH (08:10)
[2021-05-07] MEDS: AMOXICILLIN/CLAV 875 MG TABLET PO SCH ×2 (08:10→20:52)
[2021-05-07] MEDS: PRIMIDONE 50 MG TABLET PO SCH ×3 (08:10→20:53)
[2021-05-07] MEDS: busPIRone 5 MG TABLET PO SCH ×3 (08:10→20:52)
[2021-05-07] MEDS: FOLIC ACID 1 MG TABLET PO SCH (08:10)
[2021-05-07] MEDS: OXcarbazepine 300 MG TABLET PO SCH ×2 (08:10→20:52)
[2021-05-07] MEDS: DOCUSATE SODIUM 100 MG CAPSULE PO SCH ×2 (08:10→20:53)
[2021-05-07] MEDS: CYANOCOBALAMIN 2500 MCG PO SCH (08:30)
[2021-05-07] MEDS: LACTOBACILLUS ACIDOPHILUS PO SCH (08:30)
[2021-05-07] MEDS: [UNRECOGNIZED DRUG - OTHER] PO SCH (08:30)
[2021-05-07] MEDS: SELENIUM 200 MCG TABLET PO SCH (08:30)
[2021-05-07] MEDS: GABAPENTIN 300 MG CAPSULE PO SCH (20:53)
[2021-05-08] MEDS: ALBUTEROL/IPRATROPIUM 3 ML NEB RESP TX SCH ×5 (03:32→19:54)
[2021-05-08] MEDS: ASPIRIN CHEW 81 MG TABLET PO SCH (09:06)
[2021-05-08] MEDS: ATORVASTATIN 20 MG TABLET PO SCH (09:07)
[2021-05-08] MEDS: CHOLECALCIFEROL 1,000 UNIT TABLET PO SCH (09:08)
[2021-05-08] MEDS: OXcarbazepine 300 MG TABLET PO SCH ×2 (09:09→20:16)
[2021-05-08] MEDS: DOCUSATE SODIUM 100 MG CAPSULE PO SCH ×2 (09:09→20:17)
[2021-05-08] MEDS: cloNIDine 0.1 MG TABLET PO SCH ×3 (09:09→20:17)
[2021-05-08] MEDS: PRIMIDONE 50 MG TABLET PO SCH ×3 (09:09→20:17)
[2021-05-08] MEDS: AMOXICILLIN/CLAV 875 MG TABLET PO SCH ×2 (09:09→20:17)
[2021-05-08] MEDS: CETIRIZINE 10 MG TABLET PO SCH (09:10)
[2021-05-08] MEDS: PANTOPRAZOLE 40 MG TABLET PO SCH (09:10)
[2021-05-08] MEDS: SERTRALINE 50 MG TABLET PO SCH ×2 (09:10→20:17)
[2021-05-08] MEDS: TAMSULOSIN 0.4 MG CAPSULE PO SCH (09:10)
[2021-05-08] MEDS: busPIRone 5 MG TABLET PO SCH ×3 (09:10→20:17)
[2021-05-08] MEDS: CLOPIDOGREL 75 MG TABLET PO SCH (09:10)
[2021-05-08] MEDS: FERROUS SULFATE 325 MG TABLET PO SCH (09:10)
[2021-05-08] MEDS: FOLIC ACID 1 MG TABLET PO SCH (09:10)
[2021-05-08] MEDS: POLYETHYLENE GLYCOL POWDER 17 GM PACK PO SCH (09:11)
[2021-05-08] MEDS: [UNRECOGNIZED DRUG - OTHER] PO SCH (10:49)
[2021-05-08] MEDS: CYANOCOBALAMIN 2500 MCG PO SCH (10:49)
[2021-05-08] MEDS: SELENIUM 200 MCG TABLET PO SCH (10:50)
[2021-05-08] MEDS: LACTOBACILLUS ACIDOPHILUS PO SCH (10:50)
[2021-05-08] MEDS: predniSONE 20 MG TABLET PO SCH (10:50)
[2021-05-08] MEDS: GABAPENTIN 300 MG CAPSULE PO SCH (20:17)
[2021-05-08] MEDS: ACETAMINOPHEN 325 MG TABLET PO PRN (20:17)
[2021-05-09] MEDS: ALBUTEROL/IPRATROPIUM 3 ML NEB RESP TX SCH ×6 (00:37→23:30)
[2021-05-09 07:59] LABS: Basophils % 0.2 % (0.0-0.8); Eosinophils # 0.5 10*3/uL (0.0-0.87); Eosinophils % 6.1 % (0.00-10.9); Hematocrit 33.7 VOL% (42.0-52.0); Hemoglobin 10.2 GM/DL (14.0-18.0); Immature Granulocytes % 1.2 %; Lymphocytes # 0.7 10*3/uL (1.4-4.0); Lymphocytes % 8.6 % (21.2-54.2); Mean Corpuscular HGB Conc 30.3 GM/DL (32-36); Mean Corpuscular Volume 86.6 FL (87-102); Mean Platelet Volume 9.4 FL (9.6-12.0); Monocytes % 7.4 % (1.7-12.7); Neutrophils % 76.5 % (38.7-73.9); Platelet Count 239 T/CUMM (130-400); Red Blood Count 3.89 MC/CUMM (3.8-5.5); Red Cell Distribution Width 15.8 % (9.3-17.3); White Blood Count 8.2 T/CUMM (4-12)
[2021-05-09] MEDS: PRIMIDONE 50 MG TABLET PO SCH ×3 (08:11→20:03)
[2021-05-09] MEDS: CHOLECALCIFEROL 1,000 UNIT TABLET PO SCH (08:11)
[2021-05-09] MEDS: cloNIDine 0.1 MG TABLET PO SCH ×3 (08:11→20:02)
[2021-05-09] MEDS: FOLIC ACID 1 MG TABLET PO SCH (08:11)
[2021-05-09] MEDS: busPIRone 5 MG TABLET PO SCH ×3 (08:11→20:02)
[2021-05-09] MEDS: FERROUS SULFATE 325 MG TABLET PO SCH (08:11)
[2021-05-09] MEDS: AMOXICILLIN/CLAV 875 MG TABLET PO SCH ×2 (08:11→20:02)
[2021-05-09] MEDS: CETIRIZINE 10 MG TABLET PO SCH (08:11)
[2021-05-09] MEDS: ATORVASTATIN 20 MG TABLET PO SCH (08:11)
[2021-05-09] MEDS: DOCUSATE SODIUM 100 MG CAPSULE PO SCH ×2 (08:11→20:02)
[2021-05-09] MEDS: PANTOPRAZOLE 40 MG TABLET PO SCH (08:11)
[2021-05-09] MEDS: OXcarbazepine 300 MG TABLET PO SCH ×2 (08:11→20:02)
[2021-05-09] MEDS: POLYETHYLENE GLYCOL POWDER 17 GM PACK PO SCH (08:12)
[2021-05-09] MEDS: ASPIRIN CHEW 81 MG TABLET PO SCH (08:12)
[2021-05-09] MEDS: CLOPIDOGREL 75 MG TABLET PO SCH (08:12)
[2021-05-09] MEDS: SERTRALINE 50 MG TABLET PO SCH ×2 (08:12→20:02)
[2021-05-09] MEDS: TAMSULOSIN 0.4 MG CAPSULE PO SCH (08:12)
[2021-05-09] MEDS: SELENIUM 200 MCG TABLET PO SCH (08:13)
[2021-05-09] MEDS: LACTOBACILLUS ACIDOPHILUS PO SCH (08:13)
[2021-05-09] MEDS: [UNRECOGNIZED DRUG - OTHER] PO SCH (08:13)
[2021-05-09] MEDS: CYANOCOBALAMIN 2500 MCG PO SCH (08:13)
[2021-05-09 08:49] LABS: Calcium 8.9 MG/DL (8.5-10.1); Potassium 4.2 MMOL/L (3.5-5.1)
[2021-05-09] MEDS ORDERED: TUBERCULIN SKIN TEST 0.1 ML SYRINGE INTRADERM ONE (11:00)
[2021-05-09] MEDS: GABAPENTIN 300 MG CAPSULE PO SCH (20:02)
[2021-05-09] MEDS: ACETAMINOPHEN 325 MG TABLET PO PRN (20:05)
[2021-05-10] MEDS: ALBUTEROL/IPRATROPIUM 3 ML NEB RESP TX SCH ×3 (03:20→11:22)
[2021-05-10] MEDS: ATORVASTATIN 20 MG TABLET PO SCH (08:33)
[2021-05-10] MEDS: AMOXICILLIN/CLAV 875 MG TABLET PO SCH (08:33)
[2021-05-10] MEDS: busPIRone 5 MG TABLET PO SCH (08:33)
[2021-05-10] MEDS: cloNIDine 0.1 MG TABLET PO SCH (08:33)
[2021-05-10] MEDS: CHOLECALCIFEROL 1,000 UNIT TABLET PO SCH (08:33)
[2021-05-10] MEDS: ASPIRIN CHEW 81 MG TABLET PO SCH (08:33)
[2021-05-10] MEDS: OXcarbazepine 300 MG TABLET PO SCH (08:33)
[2021-05-10] MEDS: predniSONE 20 MG TABLET PO SCH (08:33)
[2021-05-10] MEDS: DOCUSATE SODIUM 100 MG CAPSULE PO SCH (08:33)
[2021-05-10] MEDS: CLOPIDOGREL 75 MG TABLET PO SCH (08:33)
[2021-05-10] MEDS: PANTOPRAZOLE 40 MG TABLET PO SCH (08:34)
[2021-05-10] MEDS: SERTRALINE 50 MG TABLET PO SCH (08:34)
[2021-05-10] MEDS: CETIRIZINE 10 MG TABLET PO SCH (08:34)
[2021-05-10] MEDS: FERROUS SULFATE 325 MG TABLET PO SCH (08:34)
[2021-05-10] MEDS: FOLIC ACID 1 MG TABLET PO SCH (08:34)
[2021-05-10] MEDS: PRIMIDONE 50 MG TABLET PO SCH (08:34)
[2021-05-10] MEDS: POLYETHYLENE GLYCOL POWDER 17 GM PACK PO SCH (08:39)
[2021-05-10] MEDS: LACTOBACILLUS ACIDOPHILUS PO SCH (08:39)
[2021-05-10] MEDS: [UNRECOGNIZED DRUG - OTHER] PO SCH (08:39)
[2021-05-10] MEDS: SELENIUM 200 MCG TABLET PO SCH (08:39)
[2021-05-10] MEDS: CYANOCOBALAMIN 2500 MCG PO SCH (08:39)
[2021-05-10 12:01] VITALS: BP 143/67
== END 2021-05-10 13:30 | DRG 73 ==
LOC: EDBD → EDUNIT# → N.ED 13:31 → N.EDINP 13:31 → N.3E 15:33
PROVIDERS: ADMIT Family Medicine; ATTEND Family Medicine

== ENCOUNTER 2021-05-31 07:13 | Inpatient (IN) ==
[2021-05-31] MEDS ORDERED: ALBUTEROL/IPRATROPIUM 3 ML NEB RESP TX STA (07:35)
[2021-05-31 07:56] LABS: ABG Base Excess 1.3 MMOL/L (-2.5-2.5); ABG HCO3 25.4 MMOL/L (20-26); ABG Oxygen Saturation 89.7 % (95-100); ABG PCO2 31.2 MM HG (35-48); ABG PH 7.496 (7.35-7.45); ABG PO2 54.7 MM HG (80-95)
[2021-05-31 08:20] LABS: INR 1.1; PT Patient Result 12.3 SECS (10.5-12.0); Partial Thromboplastin Time 26.6 SECS (23.8-32.1)
[2021-05-31 08:23] LABS: Albumin 3.2 G/DL (3.4-5.0); Bilirubin,Total 0.7 MG/DL (0.20-1.00); Calcium 9.2 MG/DL (8.5-10.1); Osmolality,Calculated 283.4 MOS/KG (273-304); Potassium 3.8 MMOL/L (3.5-5.1)
[2021-05-31 08:27] LABS: Basophils % 0.5 % (0.0-0.8); Eosinophils # 0.1 10*3/uL (0.0-0.87); Eosinophils % 0.8 % (0.00-10.9); Hematocrit 38.4 VOL% (42.0-52.0); Immature Granulocytes % 0.5 %; Immature Granulocytes Absolute 0.04 #; Lymphocytes # 0.3 10*3/uL (1.4-4.0); Lymphocytes % 3.9 % (21.2-54.2); Mean Corpuscular HGB Conc 29.9 GM/DL (32-36); Mean Corpuscular Volume 84.4 FL (87-102); Mean Platelet Volume 9.7 FL (9.6-12.0); Monocytes % 4.3 % (1.7-12.7); Platelet Count 227 T/CUMM (130-400); Red Blood Count 4.55 MC/CUMM (3.8-5.5); Red Cell Distribution Width 16.7 % (9.3-17.3); White Blood Count 8.6 T/CUMM (4-12)
[2021-05-31 08:28] LABS: Hemoglobin 11.5 GM/DL (14.0-18.0)
[2021-05-31 08:35] LABS: Band Neutrophils 9 % (0-10); Eosinophils 1 % (0-10); Hypochromasia 1+; Lymphocytes 5 % (20-55); Metamyelocytes 2 %; Segmented Neutrophils 78 % (50-85); Total Cells Counted 100
[2021-05-31 08:36] LABS: Microcytosis 1+; Ovalocytes Few; Polychromasia Slight
[2021-05-31 09:03] LABS: Bacteria,Urine Occasional /HPF (Few); Bilirubin,Urine Negative (Negative); Blood, Urine Large mg/dL (Negative); Glucose,Urine (UA) Negative (Negative); Ketones,Urine Negative (Negative); Mucus,Urine Few /LPF (Occasional); Nitrite,Urine Negative (Negative); Protein,Urine 100 MG/DL; RBC,Urine 593 /HPF (0-4); Squamous Epithelial Cell,Urine Occasional /HPF (0-10); Urine Appearance CLOUDY (Clear); Urine Color Amber (Yellow); Urine Specific Gravity 1.023 (1.001-1.035); Urine Urobilinogen < 2.0 EU/DL (<2.0)
[2021-05-31] MEDS ORDERED: ALBUTEROL 2.5 MG/3 ML NEB RESP TX STA (10:07)
[2021-05-31] MEDS ORDERED: methylPREDNISolone SOD SUC 125 MG/2 ML VIAL IV STA (10:07)
[2021-05-31] MEDS ORDERED: LEVOFLOXACIN INJ 750 MG in PREMIX 1 EACH IV STA (10:07)
[2021-05-31] MEDS ORDERED: methylPREDNISolone SOD SUC 125 MG/2 ML VIAL ONE (10:13)
[2021-05-31] MEDS ORDERED: LEVOFLOXACIN INJ 750 MG/150 ML PREMIX IV ONE (10:13)
[2021-05-31] MEDS ORDERED: ALBUTEROL 2.5 MG/3 ML NEB RESP TX ONE (10:17)
[2021-05-31] MEDS ORDERED: ONDANSETRON 4 MG/2 ML VIAL IV PRN (10:24)
[2021-05-31] MEDS: SODIUM CHLORIDE 0.9% 1,000 ML IV SCH ×2 (11:22→20:04)
[2021-05-31] MEDS ORDERED: POLYETHYLENE GLYCOL POWDER 17 GM PACK PO PRN (12:45)
[2021-05-31] MEDS ORDERED: PROMETHAZINE 25 MG TABLET PO PRN (12:45)
[2021-05-31] MEDS ORDERED: DIPHENOXYLATE/ATROPINE 2.5-0.025 MG TABLET PO PRN (12:45)
[2021-05-31] MEDS ORDERED: ALBUTEROL/IPRATROPIUM 3 ML NEB RESP TX PRN (12:47)
[2021-05-31] MEDS: ALBUTEROL/IPRATROPIUM 3 ML NEB RESP TX SCH ×2 (13:45→20:15)
[2021-05-31] MEDS ORDERED: busPIRone 10 MG TABLET ONE (15:50)
[2021-05-31] MEDS: cloNIDine 0.1 MG TABLET PO SCH ×2 (16:01→21:01)
[2021-05-31] MEDS: busPIRone 5 MG TABLET PO SCH ×2 (16:26→21:01)
[2021-05-31] MEDS: PRIMIDONE 50 MG TABLET PO SCH ×2 (17:30→21:02)
[2021-05-31] MEDS ORDERED: INFLUENZA VIRUS VACCINE 0.5 ML SYRINGE IM ONE (17:34)
[2021-05-31] MEDS: methylPREDNISolone SOD SUC 40 MG/1 ML VIAL IV SCH (19:59)
[2021-05-31] MEDS: ASCORBIC ACID 500 MG TABLET PO SCH (21:02)
[2021-05-31] MEDS: ATORVASTATIN 20 MG TABLET PO SCH (21:02)
[2021-05-31] MEDS: GABAPENTIN 300 MG CAPSULE PO SCH (21:02)
[2021-05-31] MEDS: OXcarbazepine 300 MG TABLET PO SCH (21:02)
[2021-05-31] MEDS: DOCUSATE SODIUM 100 MG CAPSULE PO SCH (21:02)
[2021-05-31] MEDS: CETIRIZINE 10 MG TABLET PO SCH (21:03)
[2021-05-31] MEDS: SERTRALINE 50 MG TABLET PO SCH (21:03)
[2021-06-01] MEDS: ALBUTEROL/IPRATROPIUM 3 ML NEB RESP TX SCH ×4 (01:40→19:00)
[2021-06-01] MEDS: methylPREDNISolone SOD SUC 40 MG/1 ML VIAL IV SCH ×3 (01:59→18:04)
[2021-06-01] MEDS: SODIUM CHLORIDE 0.9% 1,000 ML IV SCH ×3 (04:05→19:35)
[2021-06-01] MEDS: FOLIC ACID 1 MG TABLET PO SCH (10:04)
[2021-06-01] MEDS: TAMSULOSIN 0.4 MG CAPSULE PO SCH (10:04)
[2021-06-01] MEDS: PRIMIDONE 50 MG TABLET PO SCH ×3 (10:05→20:54)
[2021-06-01] MEDS: DOCUSATE SODIUM 100 MG CAPSULE PO SCH ×2 (10:05→20:53)
[2021-06-01] MEDS: PANTOPRAZOLE 40 MG TABLET PO SCH (10:05)
[2021-06-01] MEDS: CYANOCOBALAMIN 500 MCG TABLET PO SCH (10:05)
[2021-06-01] MEDS: cloNIDine 0.1 MG TABLET PO SCH ×3 (10:05→20:54)
[2021-06-01] MEDS: ASPIRIN CHEW 81 MG TABLET PO SCH (10:06)
[2021-06-01] MEDS: BACILLUS COAGULANS CAPLET PO SCH (10:06)
[2021-06-01] MEDS: OXcarbazepine 300 MG TABLET PO SCH ×2 (10:06→20:53)
[2021-06-01] MEDS: CLOPIDOGREL 75 MG TABLET PO SCH (10:06)
[2021-06-01] MEDS: SERTRALINE 50 MG TABLET PO SCH ×2 (10:06→20:54)
[2021-06-01] MEDS: LEVOFLOXACIN INJ 250 MG/50 ML PREMIX IV SCH (10:08)
[2021-06-01] MEDS: busPIRone 5 MG TABLET PO SCH ×3 (10:10→20:54)
[2021-06-01] MEDS: NON-FORMULARY MEDICATION (Calcium-Magnesium-Zinc 333-133-5 mg Tablet) PO SCH (10:19)
[2021-06-01] MEDS: NON-FORMULARY MEDICATION (Selenium 200 MCG capsule) PO SCH (10:19)
[2021-06-01] MEDS: CHOLECALCIFEROL 5,000 UNIT TABLET PO SCH (11:54)
[2021-06-01] MEDS ORDERED: SKIN HEALING OINT (AQUAPHOR) 50 GM TUBE TOP PRN (15:54)
[2021-06-01] MEDS: ATORVASTATIN 20 MG TABLET PO SCH (20:53)
[2021-06-01] MEDS: ASCORBIC ACID 500 MG TABLET PO SCH (20:53)
[2021-06-01] MEDS: CETIRIZINE 10 MG TABLET PO SCH (20:54)
[2021-06-01] MEDS: GABAPENTIN 300 MG CAPSULE PO SCH (20:54)
[2021-06-01] MEDS: ACETAMINOPHEN 325 MG TABLET PO PRN (21:37)
[2021-06-02] MEDS: methylPREDNISolone SOD SUC 40 MG/1 ML VIAL IV SCH ×2 (04:48→09:52)
[2021-06-02] MEDS ORDERED: ENOXAPARIN 30 MG/0.3 ML SYRINGE SUBCUT SCH (07:00)
[2021-06-02] MEDS: ALBUTEROL/IPRATROPIUM 3 ML NEB RESP TX SCH ×2 (07:06→07:15)
[2021-06-02] MEDS: PANTOPRAZOLE 40 MG TABLET PO SCH (09:51)
[2021-06-02] MEDS: TAMSULOSIN 0.4 MG CAPSULE PO SCH (09:51)
[2021-06-02] MEDS: BACILLUS COAGULANS CAPLET PO SCH (09:51)
[2021-06-02] MEDS: cloNIDine 0.1 MG TABLET PO SCH (09:51)
[2021-06-02] MEDS: CLOPIDOGREL 75 MG TABLET PO SCH (09:52)
[2021-06-02] MEDS: ASPIRIN CHEW 81 MG TABLET PO SCH (09:52)
[2021-06-02] MEDS: PRIMIDONE 50 MG TABLET PO SCH (09:52)
[2021-06-02] MEDS: CYANOCOBALAMIN 500 MCG TABLET PO SCH (09:52)
[2021-06-02] MEDS: SERTRALINE 50 MG TABLET PO SCH (09:52)
[2021-06-02] MEDS: OXcarbazepine 300 MG TABLET PO SCH (09:52)
[2021-06-02] MEDS: FOLIC ACID 1 MG TABLET PO SCH (09:52)
[2021-06-02] MEDS: busPIRone 5 MG TABLET PO SCH (09:52)
[2021-06-02] MEDS: DOCUSATE SODIUM 100 MG CAPSULE PO SCH (09:52)
[2021-06-02] MEDS: ACETAMINOPHEN 325 MG TABLET PO PRN (09:59)
[2021-06-02] MEDS: LEVOFLOXACIN INJ 250 MG/50 ML PREMIX IV SCH (10:03)
[2021-06-02] MEDS: NON-FORMULARY MEDICATION (Calcium-Magnesium-Zinc 333-133-5 mg Tablet) PO SCH (10:28)
[2021-06-02] MEDS: NON-FORMULARY MEDICATION (Selenium 200 MCG capsule) PO SCH (10:28)
[2021-06-02] MEDS: SODIUM CHLORIDE 0.9% 1,000 ML IV SCH ×2 (12:06→14:55)
[2021-06-02] MEDS: CHOLECALCIFEROL 5,000 UNIT TABLET PO SCH (12:25)
[2021-06-02 12:34] VITALS: BP 157/82
[2021-06-02] MEDS ORDERED: FERROUS SULFATE 325 MG TABLET PO SCH (12:45)
== END 2021-06-02 14:45 | disposition home or self-care (01) | DRG 190 ==
LOC: EDBD → EDUNIT# → N.ED 07:13 → N.2E 10:23
PROVIDERS: ADMIT Family Medicine; ATTEND Family Medicine